=== PATIENT | male | born 1940 | race Caucasian/White ===

== ENCOUNTER 2018-09-30 07:11 | Inpatient (IN) ==
[2018-09-30] MEDS ORDERED: ASPIRIN PR ONE (07:30)
[2018-09-30] MEDS ORDERED: ASPIRIN PO ONE (07:30)
--- NOTE | 2018-09-30 07:37 | EKG Report ---
Test Performed on : 09/30/2018 07:26:17 AM Test Reason : cp Blood Pressure : / mmHG Vent. Rate : 103 BPM Atrial Rate : 103 BPM P-R Int : 158 ms QRS Dur : 118 ms QT Int : 370 ms P-R-T Axes : 036 083 022 degrees QTc Int : 484 ms Sinus tachycardia. Possible Left atrial enlargement Right bundle branch block Septal infarct , age undetermined Abnormal ECG No previous ECGs available Unconfirmed Result
--- NOTE | 2018-09-30 07:50 | PROVIDER DOCUMENTATION ---
HPI-Respiratory General - General Chief Complaint: Chest Pain Stated Complaint: CHEST PAIN Time Seen by Provider: 09/30/18 07:33 Source: patient, family, old records Allergies/Adverse Reactions: Patient Allergies Allergy/AdvReac Type Severity Reaction Status Date / Time No Known Allergies Allergy Verified 09/30/18 09:00 - History of Present Illness-Resp Nature of Presenting Problem: pt cc: recurring and progressive BOUCHER past 2-3 wks. also cc: very transient episodes of CP during this time or longer ([facility] after last office visit w/ similar hx sev'l week ago). pt has no known hx of OHD, but had CVA a few years ago leading to L endart'x and diagnosis of "genetic clotting disorder" (however pt has no clinical hx of events other than the CVA, specifically no known hx DVT/PE). he denies CP at time of exam but had brief, non-rad'n CP this a.m, unassoc w/ diaphoresis. Quality of Pain: reports: none Review of Systems - Adult - REVIEW OF SYSTEMS - ADULT Constitutional: reports: no symptoms reported Eyes: reports: no symptoms reported Ears, Nose, Mouth & Throat: reports: no symptoms reported Cardiovascular: reports: see HPI Respiratory: reports: see HPI Gastrointestinal: reports: no symptoms reported Genitourinary: reports: no symptoms reported Musculoskeletal: reports: no symptoms reported Integumentary: reports: no symptoms reported Neurological: reports: no symptoms reported Psychiatric: reports: no symptoms reported Endocrine: reports: no symptoms reported Hematologic/Lymphatic: reports: no symptoms reported Allergic/Immunologic: reports: no symptoms reported All Other Systems: Reviewed and Negative Past History - Adult - PAST MEDICAL HISTORY-ADULT Review of Records: reports: Old Records Reviewed (no comp EKG, no meaningful records hx other than annual f/u carotid studies) Physical Exam-General - PHYSICAL EXAM-ADULT Initial Vital Signs Reviewed: Yes - CONSTITUTIONAL General Appearance: alert, no apparent distress - EYES Eyes: PERRL/EOMI, pink conjunctivae. negative: sclera injected, scleral icterus - HEAD, EARS, NOSE, MOUTH & THROAT HENMT: normocephalic/atraumatic, moist mucous membranes, normal ENT inspection - NECK Neck: full range of motion, supple - RESPIRATORY Respiratory: no accessory muscle use, crackles, increased rate. negative: rales, rhonchi, stridor, wheezing - CARDIOVASCULAR Cardiovascular: normal peripheral pulses, regular rate, rhythm - GASTROINTESTINAL (ABDOMEN) Abdominal Exam: normal bowel sounds, non tender, soft - LYMPHATIC Lymphatic: no adenopathy - MUSCULOSKELETAL Back Exam: normal inspection, no CVA tenderness Extremity: normal range of motion Peripheral Pulses: radial (R): 2+, radial (L): 2+ - SKIN Integumentary: normal color, normal turgor, warm/dry. negative: ecchymosis, purpura, rash - NEUROLOGIC Neurologic: epic [facility] II-XII nml as tested, grossly normal - PSYCHIATRIC Psych/Mental Status: normal mood/affect, normal thought content - HEART Score HEART Score: History: Slightly Suspicious HEART Score: ECG: Non-Specific Repolarization Disturbance/LBBB/PM HEART Score: Age: > or = 65 Years HEART Score: Risk Factors for Atherosclerotic Disease: > or = 3 Risk Factors or History of Atherosclerotic Disease Progress - PLAN OF CARE/RESULTS Progress/Plan/Lab Results: Vital Signs - 8 hr 09/30/18 08:22 09/30/18 08:30 09/30/18 08:40 Pulse Rate 96 H 95 H 95 H Respiratory Rate 26 H 35 H 30 H Blood Pressure O2 Sat by Pulse Oximetry 91 L 91 L 90 L 09/30/18 08:50 09/30/18 09:00 09/30/18 09:10 Pulse Rate 94 H 93 H 93 H Respiratory Rate 32 H 30 H 30 H Blood Pressure O2 Sat by Pulse Oximetry 91 L 90 L 90 L 09/30/18 09:20 09/30/18 09:21 09/30/18 10:17 Pulse Rate 94 H 90 94 H Respiratory Rate 29 H 33 H Blood Pressure 122/62 138/69 O2 Sat by Pulse Oximetry 91 L 89 L 09/30/18 11:00 09/30/18 11:40 09/30/18 12:00 Pulse Rate 93 H 90 92 H Respiratory Rate 28 H 31 H 32 H Blood Pressure O2 Sat by Pulse Oximetry 88 L 91 L 91 L 09/30/18 12:11 09/30/18 13:00 09/30/18 13:30 Pulse Rate 80 88 Respiratory Rate 32 H 31 H Blood Pressure O2 Sat by Pulse Oximetry 92 L 91 L 91 L 09/30/18 13:50 09/30/18 14:00 09/30/18 14:19 Pulse Rate 85 89 88 Respiratory Rate 24 30 H 30 H Blood Pressure 123/61 O2 Sat by Pulse Oximetry 90 L 91 L 91 L 09/30/18 15:02 Pulse Rate 87 Respiratory Rate 25 H Blood Pressure 134/67 O2 Sat by Pulse Oximetry 90 L Laboratory Results - last 24 hr 09/30/18 09/30/18 09/30/18 08:04 08:04 08:04 WBC 23.55 H RBC 4.20 L Hgb 12.3 L Hct 37.8 L MCV 90.0 MCH 29.3 MCHC 32.5 L RDW Std Deviation 14.0 Plt Count 690 H MPV 8.8 Neut % (Auto) 69.9 Lymph % (Auto) 4.8 L [place] % (Auto) 6.9 Eos % (Auto) 18.2 H Baso % (Auto) 0.2 Neut # (Auto) 16.47 H Lymph # (Auto) 1.12 L [place] # (Auto) 1.63 H Eos # (Auto) 4.28 H Baso # (Auto) 0.05 PT INR PTT (Actin FS) Sodium 130 L Potassium 4.4 Chloride 89 L Carbon Dioxide 32 Anion Gap 9 BUN 18 Creatinine 0.6 L Estimated GFR/1.73 m2 > 60 BUN/Creatinine Ratio 30 Glucose 98 Calculated Osmolality 263 Calcium 8.5 L Total Bilirubin 0.28 AST 14 ALT 35 Alkaline Phosphatase 103 Creatine Kinase 14 L Troponin T Luq-Z-Kvjfyrtqxom Pept 1128 H Total Protein 5.2 L Albumin 2.2 L Globulin 3.0 Albumin/Globulin Ratio 0.7 Plasma Lactate 09/30/18 09/30/18 09/30/18 08:04 08:04 10:30 WBC RBC Hgb Hct MCV MCH MCHC RDW Std Deviation Plt Count MPV Neut % (Auto) Lymph % (Auto) [place] % (Auto) Eos % (Auto) Baso % (Auto) Neut # (Auto) Lymph # (Auto) [place] # (Auto) Eos # (Auto) Baso # (Auto) PT 14.7 INR 1.06 PTT (Actin FS) 64.1 H Sodium Potassium Chloride Carbon Dioxide Anion Gap BUN Creatinine Estimated GFR/1.73 m2 BUN/Creatinine Ratio Glucose Calculated Osmolality Calcium Total Bilirubin AST ALT Alkaline Phosphatase Creatine Kinase Troponin T < 0.010 Pak-B-Nqejhafnxxw Pept Total Protein Albumin Globulin Albumin/Globulin Ratio Plasma Lactate 0.9 09/30/18 09/30/18 09/30/18 13:21 13:50 13:50 WBC RBC Hgb Hct MCV MCH MCHC RDW Std Deviation Plt Count MPV Neut % (Auto) Lymph % (Auto) [place] % (Auto) Eos % (Auto) Baso % (Auto) Neut # (Auto) Lymph # (Auto) [place] # (Auto) Eos # (Auto) Baso # (Auto) PT INR PTT (Actin FS) Sodium Potassium Chloride Carbon Dioxide Anion Gap BUN Creatinine Estimated GFR/1.73 m2 BUN/Creatinine Ratio Glucose Calculated Osmolality Calcium Total Bilirubin AST ALT Alkaline Phosphatase Creatine Kinase 13 L Troponin T < 0.010 Rwd-L-Ruuvwrqjwzy Pept Total Protein Albumin Globulin Albumin/Globulin Ratio Plasma Lactate 0.9 Orders Category Date Time Status Admit - [facility] Routine AdmDCTranf 09/30/18 15:37 Active Cardiac Monitoring DIRECTED Care 09/30/18 07:30 Active Cardiac Monitoring DIRECTED Care 09/30/18 09:28 Active IV Insertion ORDERED Care 09/30/18 09:28 Completed Notify MD of + Sepsis Screen NOW Care 09/30/18 09:28 Active Notify Physician As Ordered Care 09/30/18 09:28 Active Nursing- MD Consult Request ROUTINE Care 09/30/18 15:37 Active Oxygen Therapy- ED Nursing DIRECTED Care 09/30/18 07:30 Active Saline Loc NOW Care 09/30/18 07:30 Active Turn, Cough and Deep Breathe Q2HR Care 09/30/18 15:37 Active Update & Confirm Home Medicati ROUTINE Care 09/30/18 15:39 Active Physician/Provider Consults Routine Cons 09/30/18 15:37 Ordered Physician/Provider Consults Routine Cons 09/30/18 15:37 Ordered Heart Healthy Diet Diet 09/30/18 15:38 Active CHEST-2 VIEWS [RAD] Stat Exams 09/30/18 07:[address] ANGIOGRM PULMONARY ARTERIES [CT] Stat Exams 09/30/18 07:43 Completed ABG [RESP] Routine Lab 09/30/18 15:37 Ordered BLOOD CULTURE [BLDCUL] Stat Lab 09/30/18 10:30 Results BLOOD CULTURE [BLDCUL] Stat Lab 09/30/18 14:07 Ordered CBC WITH ELECTRONIC DIFF [HEME] Stat Lab 09/30/18 08:04 Completed CK PROFILE [SP CHEM] Stat Lab 09/30/18 08:04 Completed CK PROFILE [SP CHEM] Stat Lab 09/30/18 13:50 Completed COMPREHENSIVE METABOLIC PANEL [CHEM] Stat Lab 09/30/18 08:04 Completed LACTATE, PLASMA [CHEM] Lab 09/30/18 10:30 Completed LACTATE, PLASMA [CHEM] Lab 09/30/18 13:21 Completed LACTATE, PLASMA [CHEM] Lab 09/30/18 16:14 Ordered PRO B-NATRIURETIC PEPTIDE Stat Lab 09/30/18 08:04 Completed PROTIME WITH INR [COAG] Stat Lab 09/30/18 08:04 Completed PTT [COAG] Stat Lab 09/30/18 08:04 Completed SPUTUM CULTURE WITH GRAM STAIN [RM] Routine Lab 09/30/18 15:37 Uncollected TROPONIN T Stat Lab 09/30/18 08:04 Completed TROPONIN T Stat Lab 09/30/18 13:50 Completed Acetaminophen [Tylenol] Med 09/30/18 15:37 Active 650 mg PO Q4H PRN PRN Acetylcysteine 20% [Mucomyst 20%] Med 09/30/18 19:30 Active 3 ml INH RTBID Albuterol 2.5MG/Ipratrop 0.5MG [Duoneb (A & A)] Med 09/30/18 19:30 Active 3 ml INH RTQ4H Aspirin Med 09/30/18 07:30 Discontinued 300 mg LA NOW ONE Aspirin Med 09/30/18 11:36 Discontinued 325 mg .ROUTE .STK-MED ONE Aspirin Med 09/30/18 07:30 Discontinued 325 mg PO NOW ONE Budesonide [Pulmicort] Med 09/30/18 19:30 Active 0.5 mg INH RTBID CefTRIAXONE [Rocephin] 1 gm Med 10/01/18 09:00 Active 0.9% Sodium Chloride Inj [Ns] 50 ml IV Q24H CefTRIAXONE [Rocephin] 2 gm Med 09/30/18 13:54 Discontinued 0.9% Sodium Chloride Inj [Ns] 50 ml IV NOW Doxycycline Med 09/30/18 13:54 Discontinued 100 mg PO NOW ONE Enoxaparin [Lovenox] Med 10/01/18 09:00 Active 30 mg SUBQ Q24H Furosemide [Lasix] Med 09/30/18 15:42 Discontinued 20 mg IV NOW ONE Methylprednisolone Sod Succ [Solu-Medrol] Med 09/30/18 15:39 Discontinued 125 mg IV NOW ONE Methylprednisolone Sod Succ [Solu-Medrol] Med 09/30/18 23:30 Active 40 mg IV Q8H Aerosol Treatments Routine Oth 09/30/18 15:37 Active CP/SOB/Palp >45 yrs of Age Stat Oth 09/30/18 07:30 Ordered Oxygen Device Routine Oth 09/30/18 15:37 Active Oxygen Device Stat Oth 09/30/18 09:28 Active Pulse Oximetry Routine Oth 09/30/18 15:37 Active EKG [EKG] Stat Ther 09/30/18 07:30 Draft EKG [EKG] Stat Ther 09/30/18 13:28 Draft Echo Spec/Color Doppler Routine Ther 09/30/18 15:41 Ordered Transfer/Admit Order [TRANSFER] Routine Transfer 09/30/18 15:32 Ordered Result Diagrams: 09/30/18 08:04 09/30/18 08:04 - REASSESSMENT Reassessment #1 Time Reassessed: 14:50 Status: unchanged (exam unchanged, and no PE per CTA, however radiologist feels there is new pneumonia: will give IV abx coverage and obtain cultures, will consult for admit.) - CONSULTS/PCP/HOSPITALIST Notification #1 *Consult/PCP/Hospitalist*: hospitalist Consult Disposition: Admit Departure - Departure Date of Disposition Decision: 09/30/18 Time of Disposition Decision: 15:15 DIAGNOSIS: Pneumonia Disposition: ADMITTED INPATIENT 09 Certified Medical Emergency: Emergent Condition: Stable - Critical Care Note This patient required my direct & personal management of CC.: No Attestation - Physician/ PATRICK Attestation The physician spent face to face time with patient:: Yes Advanced Practice Provider documentation review:: Supervising physician onsite and consulted in the evaluation and care of this patient. The physician did have a face to face encounter with the patient.
--- NOTE | 2018-09-30 08:37 | Diag Imaging Result Doc PS360 ---
CHEST-2 VIEWS - 09/30/2018 INDICATION: cp COMPARISON: 09/28/2018, 09/22/2018 FINDINGS: There is persistent severe consolidation of the left lower lobe and lingula extending to the left upper lobe. There is new diffuse bilateral interstitial infiltrate compatible with pulmonary edema. There are probably trace pleural effusions. Heart size is top normal. IMPRESSION: Interstitial pulmonary edema. Superimposed on significant infiltrates in the left lung concerning for pneumonia. Electronically signed by Beck Blake 09/30/2018 8:35 AM
[2018-09-30 08:41] LABS: INR 1.06; PROTIME 14.7 Seconds (11.0-16.0)
[2018-09-30 08:43] LABS: PTT 64.1 Seconds (22.3-41.8)
[2018-09-30 08:50] LABS: BASO# 0.05 X1000 (0.0-0.2); BASO% 0.2 % (0.0-0.8); EOS# 4.28 X1000 (0.0-0.7); EOS% 18.2 % (0.0-10.0); HEMATOCRIT 37.8 % (42.0-52.0); HEMOGLOBIN 12.3 g/dL (14.0-18.0); LYMPH# 1.12 X1000 (1.2-3.4); LYMPH% 4.8 % (20.5-51.1); MCH 29.3 PG (27-31); MCHC 32.5 g/dL (33-37); MONO# 1.63 X1000 (0.11-0.59); MONO% 6.9 % (1.7-9.3); MPV 8.8 FL (7.4-10.4); NEUT# 16.47 X1000 (1.4-6.5); NEUT% 69.9 % (42.2-75.2); PLT 690 X1000 (130-400); WBC 23.55 X1000 (4.8-10.8)
[2018-09-30 09:06] LABS: ESTIMATED GFR > 60
[2018-09-30 09:14] LABS: AGAP 9; ALB/GLOB RATIO 0.7; ALBUMIN 2.2 g/dL (3.5-5.0); ALKALINE PHOSPHATASE 103 U/L (32-122); BUN 18 mg/dL (8-22); CALCIUM 8.5 mg/dL (8.8-10.2); CHLORIDE 89 mmol/L (98-107); CK PROFILE 14 U/L (24-204); COSMO 263; CREATININE 0.6 mg/dL (0.7-1.2); GLUCOSE 98 mg/dL (70-104); GOT 14 U/L (10-34); GPT 35 U/L (10-44); POTASSIUM 4.4 mmol/L (3.5-5.1); SODIUM 130 mmol/L (136-145); TCO2 32 mmol/L (25-35); TOTAL BILIRUBIN 0.28 mg/dL (0.20-1.00); TOTAL PROTEIN 5.2 g/dL (6.3-8.3)
--- NOTE | 2018-09-30 11:06 | Diag Imaging Result Doc PS360 ---
EXAM: CT ANGIOGRM PULMONARY ARTERIES 09/30/2018 HISTORY: lung CA per PET scan; SOB, hx "clotting disorder" TECHNIQUE: This exam was performed using automated exposure control, adjustment of mA or kV according to patient size, and/or use of iterative reconstruction technique. COMMENT: 3-D MIPS were performed. There are no filling defects in the pulmonary arteries. There are bilateral pleural effusions. This may be loculated on the left. There is right paratracheal adenopathy. Compared to the previous PET/CT of 09/28/2018 this has not changed significantly. There is also aorticopulmonary window adenopathy precarinal and subcarinal adenopathy. There is hazy and denser alveolar opacity in both lower lobes particularly the left lower lobe. There is peripheral interstitial and alveolar opacity present in the middle lobe and both upper lobes particularly posteriorly. Compared to the previous examination the pulmonary opacities in the right lower lobe appear worse. The pleural fluid collections were also present previously. The regional skeleton is stable in appearance. IMPRESSION: Bilateral pleural effusions and extensive pulmonary parenchymal opacification. This may represent pneumonia or pulmonary edema, or a combination of the above. Mediastinal adenopathy. The rapidity of change between the examination at [facility] on 09/22/2018 and the current examination which makes neoplastic involvement, particularly on the right side less likely. Electronically signed by Rudolph Thomson 09/30/2018 11:04 AM
[2018-09-30] MEDS ORDERED: ASPIRIN ONE (11:36)
[2018-09-30] MEDS ORDERED: DOXYCYCLINE PO ONE (13:54)
[2018-09-30] MEDS ORDERED: ROCEPHIN 2 GM in NS 50 ML IV ONE (13:54)
--- NOTE | 2018-09-30 14:07 | EKG Report ---
Test Performed on : 09/30/2018 1:42:49 PM Test Reason : CP Blood Pressure : / mmHG Vent. Rate : 087 BPM Atrial Rate : 087 BPM P-R Int : 160 ms QRS Dur : 118 ms QT Int : 404 ms P-R-T Axes : 012 062 017 degrees QTc Int : 486 ms Sinus rhythm. with occasional premature ventricular complexes. Right bundle branch block Septal infarct (cited on or before 30-SEP-2018) Abnormal ECG When compared with ECG of 30-SEP-2018 07:26, (Unconfirmed) premature ventricular complexes. are now present Serial changes of Septal infarct present Unconfirmed Result
[2018-09-30] MEDS ORDERED: TYLENOL PO PRN (15:37)
[2018-09-30] MEDS ORDERED: SOLU-MEDROL IV ONE (15:39)
[2018-09-30] MEDS ORDERED: LASIX IV ONE (15:42)
[2018-09-30 16:19] LABS: ALLEN TEST YES; BE 8.1 mmoll (-3.0-3.0); BLOOD TYPE ARTERIAL; METHB 1.1 % (0.0-1.5); O2(CT) 16.2 mL/dL (15.0-23.0); PCO2(98.6) 48 mmHg (35-45); PO2(98.6) 55 mmHg (60-100); SAMPLE BLOOD; pH(98.6) 7.45 (7.35-7.45)
[2018-09-30 16:25] LABS: MODALITY CANNULA; O2HB 88.7 % (95.0-99.0)
[2018-09-30 16:48] LABS: URINE SOURCE CLEAN CATCH
[2018-09-30 16:55] LABS: BILIRUBIN URINE NEGATIVE (NEGATIVE); BLOOD URINE NEGATIVE (NEGATIVE); COLOR YELLOW; GLUCOSE URINE NEGATIVE (NEGATIVE); KETONE URINE NEGATIVE (NEGATIVE); LEUKOCYTES URINE NEGATIVE (NEGATIVE); NITRITE URINE NEGATIVE (NEGATIVE); PH URINE 7.5; PROTEIN URINE TRACE mg/dL (NEGATIVE); TURBIDITY URINE CLEAR (CLEAR); UROBILINOGEN URINE NORMAL (NORMAL)
[2018-09-30 16:56] LABS: UR EPITHELIAL CELLS <10 /HPF (<10); URINE BACTERIA NEGATIVE /HPF; URINE RBC <10 /HPF (<10); URINE WBC <10 /HPF (<10)
--- NOTE | 2018-09-30 17:08 | ED EKG INTERP ---
This chart was entered by Juany Stephens Scribe, acting as scribe for Diego Marcano MD. EKG Interpretation - EKG Time of EKG reading by physician:: 07:32 EKG Read and Signed by:: Diego Marcano EKG Interpretation (*Must complete 3 of following elements*): Abnormal (possible left atrial enlargement; septal infarct, age undetermined) Rate: 103 Rhythm: sinus tachycardia QRS: RBB ST Wave: normal Attestation - Physician/ PATRICK Attestation Patient care was provided by Advanced Practice Provider:: No The physician spent face to face time with patient:: Yes Advanced Practice Provider documentation review:: Supervising physician onsite and consulted in the evaluation and care of this patient. The physician did have a face to face encounter with the patient. This chart was documented by the indicated scribe, (Juany Stephens Scribe) and accurately reflects the services I performed and decisions made by me, Diego Marcano MD, as attested by the provider's signature.
--- NOTE | 2018-09-30 17:08 | ED EKG INTERP ---
This chart was entered by Juany Stephens Scribe, acting as scribe for Diego Marcano MD. EKG Interpretation - EKG Time of EKG reading by physician:: 13:44 EKG Read and Signed by:: Diego Marcano EKG Interpretation (*Must complete 3 of following elements*): Abnormal (septal infarct, age undetermined) Rate: 87 Rhythm: sinus rhythm QRS: RBB, PVC's (occasional) ST Wave: normal Attestation - Physician/ PATRICK Attestation Patient care was provided by Advanced Practice Provider:: No The physician spent face to face time with patient:: Yes Advanced Practice Provider documentation review:: Supervising physician onsite and consulted in the evaluation and care of this patient. The physician did have a face to face encounter with the patient. This chart was documented by the indicated scribe, (Juany Stephens Scribe) and accurately reflects the services I performed and decisions made by me, Diego Marcano MD, as attested by the provider's signature.
--- NOTE | 2018-09-30 17:50 | HISTORY AND PHYSICAL ---
PRIMARY CARE PROVIDER: Dr. Gadiel Osorio. PRIMARY ONCOLOGIST: Dr. Harry Yanez. HISTORY OF PRESENT ILLNESS: Mr. Fadi Cutler is a 77-year-old male with a medical history of CVA back in 2007 requiring a left carotid endarterectomy, hypertension, hyperlipidemia, prostate cancer in the past with radiation seeds, depression, and arthritis. He states over the last 2-3 weeks he has been short of breath, coughing up green and yellow phlegm. Denies having any fevers but had a spell this morning where he was extremely short of breath. He felt like his blood pressure was low and his heart rate was up. He was having chest pain with it, so he presented to the emergency department with these complaints. Currently he is breathing much more comfortably. He is requiring oxygen. He has an elevated white blood cell count. His chest x-ray shows pneumonia bilaterally. He has been started on antibiotics. He is not septic. His white count is quite elevated. The respiratory rate is elevated, but the heart rate is normal. Lactate is normal. We are going to get an ABG. He states that last Wednesday he had a PET scan and then saw Dr. 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 Currently he is stable, and we will treat him. He denies having COPD. PAST MEDICAL HISTORY: 1. CVA with memory loss. 2. Carotid artery stenosis with left CEA. 3. Hypertension. 4. Hyperlipidemia. 5. Restless legs syndrome. 6. BPH. 7. History of prostate cancer with radiation seeds. 8. Depression. 9. Arthritis. PAST SURGICAL HISTORY: 1. Left carotid endarterectomy. 2. Appendectomy. 3. Prostate seed implant. SOCIAL HISTORY: States he has not been smoking at all over the last 2-3 weeks, but he has been a 1-ptvi-qdh-day smoker for many years. States he started smoking at the age of 15. He denies having any alcohol in the last 2 years, but he used to drink a 6-pack of beer daily. He is currently living with his son. He denies any illicit drug use. FAMILY HISTORY: Mother had dementia. Father is still alive at the age of 102 and has h patient. Sister had lung cancer. ALLERGIES: No known drug allergies. HOME MEDICATIONS: Have not been verified. There is an order for it. REVIEW OF SYSTEMS: A 14-point review of systems is completed, and all are negative except for those mentioned above in the HPI. PHYSICAL EXAMINATION: VITAL SIGNS: Temperature 97.8, heart rate 89, respiratory rate 30, blood pressure 91% on 4 L nasal cannula. He is 5 feet 11 inches tall, 200 pounds. BMI is 27.9. GENERAL: Mr. Fadi Cutler is a 77-year-old male. He is in no acute distress. He is able to answer questions appropriately HEENT: Atraumatic, normocephalic. Pupils equal, round, and reactive to light. Extraocular movements intact. Mucous membranes are moist. NECK: Trachea midline. CARDIOVASCULAR: S1 and S2. Regular rate and rhythm. No rubs, gallops or murmurs. There is trace lower extremity edema. He has +2 dorsalis and radial pulses. Negative for JVD or carotid bruits. PULMONARY: Mild expiratory wheezes. He does have prolonged expiration that is decreased in the bases with fine rhonchi posteriorly. He is tolerating 4 L nasal cannula. GI: Soft, nontender, nondistended. Positive bowel sounds x4. EXTREMITIES: Moves all extremities equally with decreased range of motion. NEUROLOGIC: A O x3. Follows commands. Sensory is intact. SKIN: Warm, dry and intact. LABORATORY DATA: White blood cells 23,000, hemoglobin 12, hematocrit 37, platelet count 690. INR 1.06, PTT 64. Sodium 130, potassium 4.4, BUN 18, creatinine 0.6, glucose 98. Calcium 8.5, bilirubin 0.28. AST 14, ALT 35. CK 13. Troponin less than 0.01 (this was on 2 sets). ProBNP is 1128. Albumin 2.2. Two serum lactates are showing 0.9. The repeat was 0.9. IMAGING: Chest x-ray: Interstitial pulmonary edema superimposed on significant infiltrates in the left lung, concerning for pneumonia. Pulmonary arteriogram: Bilateral pleural effusions and extensive pulmonary parenchymal opacification, may represent pneumonia, pulmonary edema or a combination of both. Mediastinal adenopathy which has the appearance of infection instead of neoplastic involvement. EKG: Sinus tachycardia, rate of 103, QTc 484. Repeat EKG: Normal sinus rhythm, rate of 87, QTc of 486. ASSESSMENT/PLAN: 1. Acute hypoxemic respiratory failure. Could be secondary to lung cancer or mesothelioma. Could be secondary to possible chronic obstructive pulmonary disease. He is on oxygen. He is able to keep the O2 saturations over 90%. Will consult Pulmonary. Will add steroids. 2. 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 Will consult Dr. Yanez and Dr. King. 3. Pneumonia. Will get a sputum culture and start him on Rocephin. He is not septic at the moment. On nebulizers, turn, cough, deep breathing, pulmonary toilet. 4. Protein calorie malnutrition. He started on a heart-healthy diet, but will do a nutritional consult. 5. History of stroke with memory loss. He does seem to have a little bit of problems with his memory with questions, but it is not severe. 6. Hypertension, stable. Trying to get medications reconciled. 7. Hyperlipidemia. 8. Benign prostatic hypertrophy. Will hopefully resume his medications that he is on. 9. Restless legs syndrome. 10.Depression. 11.Deep venous thrombosis prophylaxis with Lovenox. 12.Tobacco abuse. Cessation discussion. He states he has quit, and he has been quit for 2 to 3 weeks, but had been smoking since age 15. Dictated by ELY Barrientos for Isidoro Martinez MD cc: ELY Barrientos MD Patient seen and examined by me. I agree with the assessment and plan of the OPERATIONS EXPERT. Dr. Michelle TELLO
[2018-09-30] MEDS: MUCOMYST 20% INH SCH (20:21)
[2018-09-30] MEDS: DUONEB (A & A) INH SCH ×2 (20:21→23:45)
[2018-09-30] MEDS: PULMICORT INH SCH (20:21)
[2018-10-01] MEDS: SOLU-MEDROL IV SCH ×3 (00:52→18:11)
[2018-10-01] MEDS: DUONEB (A & A) INH SCH ×6 (03:45→23:24)
[2018-10-01 05:59] LABS: ALLEN TEST YES; BE 8.5 mmoll (-3.0-3.0); BLOOD TYPE ARTERIAL; HCO3-(ACT) 31.4 mmoll (20.0-26.0); O2(CT) 14.1 mL/dL (15.0-23.0); O2HB 90.1 % (95.0-99.0); PO2(98.6) 59 mmHg (60-100); SAMPLE BLOOD; SAO2 92.4 % (95.0-100.0); THB 11.1 g/dL (11.5-17.4); pH(98.6) 7.42 (7.35-7.45)
[2018-10-01 06:01] LABS: MODALITY PRB; PCO2(98.6) 53 mmHg (35-45)
[2018-10-01 07:54] LABS: BASO# 0.03 X1000 (0.0-0.2); BASO% 0.2 % (0.0-0.8); EOS# 0.22 X1000 (0.0-0.7); EOS% 1.2 % (0.0-10.0); HEMOGLOBIN 12.1 g/dL (14.0-18.0); IMM GRAN# 0.36 X1000 (0.0-0.04); LYMPH# 0.86 X1000 (1.2-3.4); LYMPH% 4.8 % (20.5-51.1); MCH 29.3 PG (27-31); MCHC 32.7 g/dL (33-37); MCV 89.6 FL (81-99); MONO# 0.66 X1000 (0.11-0.59); MONO% 3.7 % (1.7-9.3); MPV 8.9 FL (7.4-10.4); NEUT# 15.92 X1000 (1.4-6.5); NEUT% 88.1 % (42.2-75.2); PLT 699 X1000 (130-400); RBC 4.13 XMIL (4.7-6.1); RDW 13.8 % (11.5-14.5); WBC 18.05 X1000 (4.8-10.8)
[2018-10-01] MEDS: PULMICORT INH SCH ×2 (08:02→20:21)
[2018-10-01] MEDS: MUCOMYST 20% INH SCH ×2 (08:02→20:21)
[2018-10-01 08:10] LABS: AGAP 11; ALB/GLOB RATIO 0.6; ALBUMIN 2.2 g/dL (3.5-5.0); ALKALINE PHOSPHATASE 96 U/L (32-122); BUN 24 mg/dL (8-22); CALCIUM 8.7 mg/dL (8.8-10.2); CHLORIDE 90 mmol/L (98-107); COSMO 271; CREATININE 0.6 mg/dL (0.7-1.2); ESTIMATED GFR > 60; GLUCOSE 146 mg/dL (70-104); GOT 16 U/L (10-34); GPT 32 U/L (10-44); POTASSIUM 4.1 mmol/L (3.5-5.1); SODIUM 132 mmol/L (136-145); TCO2 31 mmol/L (25-35); TOTAL BILIRUBIN 0.18 mg/dL (0.20-1.00)
[2018-10-01 08:47] LABS: BANDS 6 % (0-1); LYMPHS 4 % (21-51); MONO 2 % (1-9); SEGS 86 % (42-75)
[2018-10-01] MEDS ORDERED: LEVAQUIN 500 MG/D5W 500 MG/100 ML IVPB IV SCH (10:30)
[2018-10-01] MEDS ORDERED: LASIX IV ONE ×2 (11:36→18:00)
[2018-10-01] MEDS: ROCEPHIN 1 GM in NS 50 ML IV SCH (11:45)
[2018-10-01] MEDS: LOVENOX SUBQ SCH (11:45)
[2018-10-01] MEDS ORDERED: NS 1,000 ML ONE (12:13)
--- NOTE | 2018-10-01 13:43 | Diag Imaging Result Doc PS360 ---
EXAM: CHEST-2 VIEWS HISTORY: Pneumonia TECHNIQUE: Chest two views COMPARISON: 09/30/2018 FINDINGS: The lungs are hyperexpanded. There are dense infiltrates throughout the left lung with small pleural effusions. Heart is borderline mildly prominent and there is mild pulmonary edema. IMPRESSION: No interval improvement. Electronically signed by Van Escobedo 10/01/2018 1:41 PM
--- NOTE | 2018-10-01 14:59 | ECHO REPORT ---
ORDER DATE: 09/30/2018 INTERPRETING PHYSICIAN: Dr. Zheng REQUESTING PHYSICIAN: CLINICAL INDICATIONS: This is a 77-year-old male with shortness of breath, chest pain. M-mode measurements cannot be properly measured in this case. The parasternal widows are very limited. In general, the patient's acoustic windows were very limited. Optison was added to optimize visualization of endocardium. M-MODE MEASUREMENTS: Right ventricle: cm. Left ventricle end diastole: cm. Left ventricle end systole: cm. Posterior wall: cm. Interventricular septum: cm. Left atrium: cm. Aortic root: cm. SUMMARY OF 2-DIMENSIONAL IMAGIN. Left ventricular systolic function appears to be hyperdynamic. Ejection fraction was 70% to 75%. No wall motion abnormality is noted. 2. Right ventricle appears to be normal. 3. A prominent epicardial fat pad is noted. 4. Aortic valve appears to be grossly normal. Color flow mapping is unremarkable. 5. Mitral valve appears to be grossly normal. Color flow mapping is unremarkable. 6. Pulse wave Doppler of mitral inflow shows reversal of the E and the A ratio. The ratio is 0.6. 7. Tissue Doppler of septal and lateral mitral annulus averages 5 cm. 8. There is impaired left ventricular relaxation. 9. Tricuspid valve looks unremarkable. 10.Pulmonary pressure is estimated at 22 to 27 mmHg. 11.Pulmonic valve is grossly normal. 12.There is no pericardial effusion, masses or thrombus. Clinical correlation is recommended. cc: MD Mona Rdz CRNP
[2018-10-01] MEDS: LEVAQUIN 500 MG/D5W 500 MG/100 ML IVPB IV SCH (18:18)
[2018-10-01] MEDS ORDERED: LASIX ONE (18:23)
--- NOTE | 2018-10-01 20:27 | PROGRESS NOTE ---
DATE: 10/01/2018 INTERVAL HISTORY: Mr. Cutler was admitted for acute hypoxic respiratory failure, bilateral pneumonia. He did not have any acute or other overnight events. He continues to remain hypoxic. SUBJECTIVE: He is feeling slightly better. He is denying any chest pain. He still feels short of breath. He is an active smoker, who quit 2 weeks ago. He has not been able to bring up sputum. We discussed about lung exam findings, pulmonary edema, pneumonia and possible lung mass. I answered all of his questions. The patient's family is at bedside. OBJECTIVE: Temperature 98.7 degrees, pulse 78, respiratory rate 19, blood pressure 125/57, saturating 92% to 93% on 100% nonrebreather mask. General: Does not appear in any acute distress. Oral cavity is moist. He has significantly decreased air entry with inspiratory crackles on left hemithorax, especially from mid to low lung zones. He has good air entry in right hemithorax except infrascapular region, where he has inspiratory crackles; however, better than left. S1, S2 normal, tachycardic. No murmur, rub or gallop. His abdomen is soft, nontender. He does have bilateral lower extremity edema. LABORATORY DATA: Microbiology: Blood cultures are in lab. Lab suggestive of improving leukocytosis, normocytic anemia, thrombocytosis. He does have compensated hypercarbia and hypoxia, hyponatremia, hypochloremia and normal kidney function. ASSESSMENT AND PLAN: 1. Acute hypoxic respiratory failure secondary to bilateral lung infiltrate in the setting of suspected pneumonia, with a component of pulmonary edema. Continue intravenous levofloxacin. He was also on intravenous ceftriaxone. Continue oxygenation to maintain saturation more than 90% to 92%. I will give him intravenous Lasix, considering exam findings as well as elevated proBNP, and we will get echocardiogram. I will also follow up with blood culture, urine antigens and sputum culture results. Pulmonology on board. There are concerns about lung masses. 2. Active tobacco abuse. The patient quit about 2 weeks ago. He does not use any oxygen or nebulizations at home. Considering he had mild wheezing, I will continue current dose of intravenous steroids. 3. Others: I will resume aspirin and rosuvastatin for secondary cerebrovascular accident prophylaxis. I will continue home tamsulosin and finasteride for benign prostatic hypertrophy; I am holding antihypertensive medication including lisinopril and hydrochlorothiazide, considering soft blood pressure. Plan of care was discussed with the patient and his, I assume granddaughter, at bedside. All of their questions have been answered. cc: Joseph Mccabe MD
[2018-10-01] MEDS: CRESTOR PO SCH (21:45)
[2018-10-01] MEDS: REQUIP PO SCH (21:45)
[2018-10-02] MEDS: SOLU-MEDROL IV SCH ×3 (00:09→17:00)
[2018-10-02] MEDS: DUONEB (A & A) INH SCH ×6 (03:35→22:15)
--- NOTE | 2018-10-02 05:31 | CONSULTATION ---
DATE OF CONSULTATION: 10/01/2018 REQUESTING PROVIDER: ELY Barrientos. REASON FOR CONSULTATION: Mesothelioma versus lung cancer. HISTORY OF PRESENT ILLNESS: This is a 77-year-old male with medical history of cerebrovascular accident, carotid arterial stenosis, hypertension, hyperlipidemia, benign prostatic hyperplasia, prostate cancer, restless legs syndrome, depression, and arthritis. He presented to the ER with worsening dyspnea on exertion over 3 weeks yesterday. Initial workup in the ER revealed acute hypercapnic hypoxemic respiratory failure and pneumonia. He has been admitted to the medical floor for further evaluation and management. The patient currently is lying in bed with no acute distress noted. He is wearing a non-rebreather. One of his granddaughters is at the bedside. The patient, apparently, had a PET scan last Wednesday, which revealed mesothelioma versus lung cancer, and he has been seeing Dr. Yanez. He reports severe shortness of breath and states he even has trouble to walk to the bathroom at home. He also has a productive cough with green and yellow phlegm. He reports intermittent chest pain and heart palpitation, but he has no fever, wheezing, hemoptysis, nausea, vomiting, constipation, or diarrhea. PAST MEDICAL AND SURGICAL HISTORY: 1. Cerebrovascular accident in 2007 with memory loss. 2. Carotid arterial stenosis, status post left carotid endarterectomy. 3. Hypertension. 4. Hyperlipidemia. 5. Benign prostatic hyperplasia. 6. Prostate cancer status post radiation seed implant. 7. Restless legs syndrome. 8. Depression. 9. Arthritis. 10. Appendectomy. SOCIAL HISTORY: Patient currently lives with his son. He has 3 children and 5 grandchildren. He quit smoking 2 to 3 weeks ago, after his doctor told him to quit. He used to smoke up to 2 packs per day and started smoking at the age of 15. The patient's family smokes too. He used to drink a 6-pack of beers daily and has stopped drinking for over 2 years. He has no illicit drug use. FAMILY HISTORY: Positive for dementia and lung cancer. ALLERGIES: No known drug allergies. REVIEW OF SYSTEMS: A 10-point review of systems was conducted and the pertinent is listed within the HPI, otherwise noncontributory. PHYSICAL EXAMINATION: Vital Signs: Temperature 98.1 degrees, blood pressure 125/57, pulse 88, respiratory rate 16, oxygen saturation 93% on non-rebreather with FiO2 60%. General: Chronically ill-appearing, resting in bed with no acute distress noted. Cyanosis at the tip of his nose noted. HEENT: Atraumatic. Trachea midline. Mucosa pink and slightly dry. Respiratory: Even and unlabored. Symmetrical excursion. Auscultation reveals diminished breathing sounds and early inspiratory crackles bibasilarly with prolonged expiratory phase. Cardiovascular: Regular rate and rhythm. Gastrointestinal: Bowel sounds normoactive in all 4 quadrants. Soft, nontender, nondistended. Extremities: Left lower extremity has trace pitting edema, which per patient, is normal. No cyanosis. No clubbing. Dorsalis pedis 2+ bilaterally. Neurologic: Alert, oriented x3. Speech fluent. Follows commands. LAB DATA: White blood cell 18.05, hemoglobin 12.1, hematocrit 37.0, platelets 699,000. Sodium 132, potassium 4.1, chloride 90, carbon dioxide 31, BUN 24, creatinine 0.6. Glucose 146. ABG, pH 7.42, pCO2 of 53, PO2 of 59, HCO3 31.4, base excess 8.5, and oxyhemoglobin 90.1. IMAGING DATA: CT angiogram, pulmonary arterials on 09/30/2018 revealed bilateral pleural effusion and extensive pulmonary parenchymal opacification. This may represent pneumonia or pulmonary edema, or a combination of the above, mediastinal adenopathy. The rapidity of change between the examination at [facility] on 09/22/2018 and the current examination, which makes neoplastic involvement, particularly on the right side, less likely. ASSESSMENT: This is a 77-year-old male with a medical history of cerebrovascular accident, carotid arterial stenosis, hypertension, hyperlipidemia, benign prostatic hyperplasia, prostate cancer, restless legs syndrome, depression, and arthritis. He has been admitted to the medical floor with acute hypoxemic respiratory failure, mesothelioma versus cancer and pneumonia. 1. Acute hypoxemic respiratory failure. 2. Acute hypercapnic respiratory failure. 3. Pneumonia. 4. Bilateral pleural effusions. 5. 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 6. Tobacco abuse. PLAN: 1. Continue supplemental oxygen as needed. 2. Continue antibiotics, steroid, and bronchodilators. Consider diuretic, if needed. 3. Follow up with chest x-ray, ABG, sputum culture, and blood culture. 4. Consider to repeat CT later at this time. 5. Dr. Yanez is on board. 6. Educate the patient and his granddaughter on the importance of smoking cessation. They both state they are ready to quit it and they have been working on it. 7. Further recommendations pending hospital course. Thank you for the courtesy of this consult. Dictated by ELY Banks for Rima King MD cc: ELY Banks MD [facility]
[2018-10-02 05:34] LABS: ALLEN TEST YES; BE 10.7 mmoll (-3.0-3.0); BLOOD TYPE ARTERIAL; HCO3-(ACT) 33.2 mmoll (20.0-26.0); METHB 0.8 % (0.0-1.5); O2(CT) 15.8 mL/dL (15.0-23.0); O2HB 95.8 % (95.0-99.0); PO2(98.6) 80 mmHg (60-100); SAMPLE BLOOD; SAO2 97.9 % (95.0-100.0); THB 11.7 g/dL (11.5-17.4); pH(98.6) 7.41 (7.35-7.45)
[2018-10-02 05:45] LABS: MODALITY NRB
[2018-10-02 05:46] LABS: PCO2(98.6) 59 mmHg (35-45)
--- NOTE | 2018-10-02 07:23 | Diag Imaging Result Doc PS360 ---
EXAM: CHEST-1 VIEW HISTORY: SOB TECHNIQUE: Portable chest, single view COMPARISON: 10/01/2018 FINDINGS: There are infiltrates throughout the left lung. These are most pronounced in the left lung base where there is also a [id number] pleural effusion. There is pulmonary edema and the heart is mildly enlarged. The overall appearance is similar to the prior exam. IMPRESSION: No interval improvement. Electronically signed by Van Escobedo 10/02/2018 7:21 AM
[2018-10-02] MEDS ORDERED: PULMICORT ONE (07:38)
[2018-10-02] MEDS: PULMICORT INH SCH ×2 (08:02→19:45)
[2018-10-02] MEDS: MUCOMYST 20% INH SCH ×2 (08:02→19:45)
[2018-10-02] MEDS: ROCEPHIN 1 GM in NS 50 ML IV SCH (10:00)
[2018-10-02] MEDS: ASPIRIN PO SCH (10:01)
[2018-10-02] MEDS: LEXAPRO PO SCH (10:01)
[2018-10-02] MEDS: PROSCAR PO SCH (10:01)
[2018-10-02] MEDS: LOVENOX SUBQ SCH (10:01)
[2018-10-02] MEDS: LEVAQUIN 500 MG/D5W 500 MG/100 ML IVPB IV SCH (10:02)
--- NOTE | 2018-10-02 15:48 | HEMO/ONC CONSULTATION ---
DATE: 10/02/2018 REASON FOR CONSULTATION: Left lower lobe lung mass. HISTORY OF PRESENT ILLNESS: Patient is a 77-year-old male who was recently seen by me in the clinic with complaints of 3 to 4 months of fatigue, shortness of breath over the last 1 to 2 months and right-sided chest pain over the last 3 to [address] Osorio and had a chest x-ray that led to a CT scan. CT scan revealed interstitial disease with consolidation in the left lower lobe and possible left lower lobe lung mass. We saw and Augmentin 75 mg b.i.d. on 09/26/2018 and scheduled him for a PET scan. Labs revealed a CEA of less than 0.5 and hyponatremia with sodium level of 124. 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 He presented to the hospital with worsening dyspnea. In the ER, he was noted to have acute hypercapnic hypoxemic respiratory failure and pneumonia. Dr. King has seen him. A CT angiogram was performed which reveals bilateral pleural effusions and extensive pulmonary parenchymal opacification. He has been placed on broad-spectrum antibiotics. PAST MEDICAL HISTORY: Hypertension, hypercholesterolemia, stroke, BPH. PAST SURGICAL HISTORY: Carotid artery surgery, appendectomy, prostate surgery. ALLERGIES: No known drug allergies. SOCIAL HISTORY: Patient currently lives with his son. He smoked 2 packs per day for the last 63 years. He denies significant alcohol intake. FAMILY HISTORY: Positive for pancreatitis, dementia and lung cancer. CURRENT MEDICATIONS: Mini nebs, aspirin, ceftriaxone, Levaquin, Crestor, Requip, Solu-Medrol, Proscar. REVIEW OF SYSTEMS: As dictated above. He has tiredness and fatigue. He reports that his appetite is okay. He denies any pain. He denies fevers or night sweats. All other review of systems are negative. PHYSICAL EXAMINATION: Patient is lying in bed. He is on mask ventilation. He does not appear in any acute distress at this time.Vital Signs: Temperature 97.6 degrees, pulse 77, blood pressure 127/56. HEENT: EOMI. PERRLA. Anicteric. Mucous membranes appear moist. No oral thrush. Neck: Supple without JVD, thyromegaly, or nodules. Cardiac Exam: Regular rate and rhythm. Normal S1, S2. Chest: Reveals fine crackles at bilateral bases. Left greater than right. Occasional wheezing on the right side is heard as well. Abdomen: Soft, nontender, without hepatosplenomegaly or masses. Neurologic: Alert and oriented x3. No focal motor deficits. Lymphatic: Lymphatic exam: No enlarged lymph nodes palpated. Skin: No petechiae or ecchymosis or rash is noted. LABORATORY DATA: White count 18, hemoglobin 12.1, platelets 619,000, ANC 15.9, BUN 24, creatinine 0.6. ProBNP 1128, lactate 0.9. CT pulmonary angiogram: Bilateral pleural effusions. An extensive pulmonary parenchymal opacification. This may represent pneumonia or pulmonary edema or a combination. This has rapidly changed since his last exam from [facility] dated 09/22/2018. ASSESSMENT AND PLAN: 1. Acute hypoxemic respiratory failure. 2. Acute hypercapnic respiratory failure. 3. Pneumonia. 4. Bilateral pleural effusions. 5. 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 Discussed patient with Dr. King. Currently we will aggressively treat him for pneumonia. Continue nebulizers and steroids for possible COPD exacerbation. His infiltrates have rapidly progressed since his prior scans and be infectious in nature. His PET scan revealed pleural thickening and significant uptake in the pleural area with maximum SUV of 15.9, which is particularly concerning for malignancy. Once his infectious disease is managed, will we may have to consider biopsying his pleural mass as evaluation for malignancy. cc: Harry Yanez MD
--- NOTE | 2018-10-02 16:18 | PROGRESS NOTE ---
DATE: 10/02/2018 SUBJECTIVE: Patient resting in bed. OBJECTIVE: Vital Signs: Temperature 97.9 degrees, pulse 85, respirations 18, blood pressure is 132/60, O2 saturation 97%. HEENT: Atraumatic, normocephalic. Cardiovascular: S1, S2. Respiratory system: Has evidence of good air entry bilaterally. Abdomen: Soft, nontender. No masses felt. Extremities: No evidence of edema. Central Nervous System: No evidence of focal deficit. LABORATORY DATA: ABG 7.41/59/80/97.9%. ASSESSMENT AND PLAN: 1. Hypercapnic respiratory failure. Continue patient on supplemental oxygen. Use BiPAP if needed. 2. Pneumonia. Maintain patient on antibiotics. Follow up on blood cultures. 3. 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 Await tissue diagnosis needed to establish a diagnosis. Oncology consulted. 4. Tobacco use history. Aware. 5. History of cerebrovascular accident, continue aspirin. 6. History of benign prostatic hypertrophy. Continue finasteride as well as tamsulosin. 7. Hypertension controlled. 8. Deep vein thrombosis prophylaxis. Lovenox. 9. Gastrointestinal prophylaxis. Proton pump inhibitor. cc: Isidoro Martinez MD MTDD
[2018-10-02] MEDS: REQUIP PO SCH (20:37)
[2018-10-02] MEDS: CRESTOR PO SCH (20:37)
[2018-10-03] MEDS: SOLU-MEDROL IV SCH ×4 (00:27→23:17)
[2018-10-03] MEDS ORDERED: TEARISOL OPH SOLUTION BOTH EYES PRN (02:01)
[2018-10-03] MEDS: DUONEB (A & A) INH SCH ×6 (03:39→22:40)
[2018-10-03 05:30] LABS: ALLEN TEST YES; BE 10.5 mmoll (-3.0-3.0); BLOOD TYPE ARTERIAL; HCO3-(ACT) 33.1 mmoll (20.0-26.0); METHB 0.7 % (0.0-1.5); O2(CT) 15.7 mL/dL (15.0-23.0); O2HB 97.1 % (95.0-99.0); PO2(98.6) 94 mmHg (60-100); SAMPLE BLOOD; SAO2 99.5 % (95.0-100.0); THB 11.4 g/dL (11.5-17.4); pH(98.6) 7.39 (7.35-7.45)
[2018-10-03 05:32] LABS: MODALITY NRB
[2018-10-03 05:36] LABS: PCO2(98.6) 62 mmHg (35-45)
[2018-10-03] MEDS: PROTONIX PO SCH (06:53)
--- NOTE | 2018-10-03 07:08 | Diag Imaging Result Doc PS360 ---
EXAM: CHEST-1 VIEW HISTORY: SOB TECHNIQUE: Portable chest single view COMPARISON: 10/02/2018 FINDINGS: There are infiltrates throughout the left lung. There is also a left pleural effusion with basilar atelectasis. Mild pulmonary edema similar to the prior exam. The heart is mildly enlarged. IMPRESSION: No significant interval improvement. Electronically signed by Van Escobedo 10/03/2018 7:05 AM
[2018-10-03] MEDS: MUCOMYST 20% INH SCH ×2 (07:45→20:04)
[2018-10-03] MEDS: PULMICORT INH SCH ×2 (07:46→20:04)
[2018-10-03] MEDS: LEVAQUIN 500 MG/D5W 500 MG/100 ML IVPB IV SCH ×2 (10:04→16:18)
[2018-10-03] MEDS: LOVENOX SUBQ SCH (10:05)
[2018-10-03] MEDS: LEXAPRO PO SCH (10:05)
[2018-10-03] MEDS: ASPIRIN PO SCH (10:05)
[2018-10-03] MEDS: PROSCAR PO SCH (10:05)
--- NOTE | 2018-10-03 10:19 | PROVIDER PROGRESS NOTE ---
Progress Note Additional Pulmonary note: Recent PET films were reviewed. However I am waiting on the official report. Also will repeat CT imaging in a day or two. After reviewing information above, will decide on tissue diagnosis and approach, if any.
--- NOTE | 2018-10-03 16:05 | PROGRESS NOTE ---
DATE: 10/03/2018 SUBJECTIVE: Patient is resting comfortably. OBJECTIVE: Vital Signs: As follows: Temperature 98.4, pulse of 97, respiratory rate is 20, blood pressure is 131/64, oxygen is 95%. HEENT: Patient is atraumatic, normocephalic. Cardiovascular: S1, S2. Respiratory: Has evidence of good air entry bilaterally. Abdomen: Soft, nontender. No masses felt. Extremities: No evidence of edema. Central Nervous System: No obvious focal deficits noted. LABORATORY DATA: AB.39/62/94/99.5%. X-ray of the chest shows infiltrate throughout the left lung. There is also left pleural effusion with basilar atelectasis. There is mild pulmonary edema similar to prior exam. ASSESSMENT AND PLAN: 1. Hypercapnic respiratory failure. Maintain patient on supplemental oxygen. Use BiPAP as needed. 2. Pneumonia. Continue antibiotics. Follow up on cultures. 3. 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 Await tissue diagnosis needed to establish a diagnosis. Oncology is following. 4. History of cerebrovascular accident. Continue aspirin. 5. History of benign prostatic hypertrophy. Continue tamsulosin as well as finasteride. 6. Hypertension, controlled. 7. DVT prophylaxis. Lovenox. 8. GI prophylaxis. PPI. cc: Isidoro Martinez MD MTDD
[2018-10-03] MEDS: ROCEPHIN 1 GM in NS 50 ML IV SCH (16:18)
[2018-10-03] MEDS: CRESTOR PO SCH (21:18)
[2018-10-03] MEDS: REQUIP PO SCH (21:18)
[2018-10-04] MEDS: DUONEB (A & A) INH SCH ×6 (02:00→22:25)
[2018-10-04 05:29] LABS: ALLEN TEST YES; BE 7.8 mmoll (-3.0-3.0); BLOOD TYPE ARTERIAL; HCO3-(ACT) 30.9 mmoll (20.0-26.0); METHB 0.5 % (0.0-1.5); O2(CT) 16.5 mL/dL (15.0-23.0); O2HB 94.4 % (95.0-99.0); PO2(98.6) 67 mmHg (60-100); SAMPLE BLOOD; SAO2 96.5 % (95.0-100.0); THB 12.4 g/dL (11.5-17.4); pH(98.6) 7.42 (7.35-7.45)
[2018-10-04 05:31] LABS: MODALITY VENTIMASK; PCO2(98.6) 52 mmHg (35-45)
[2018-10-04] MEDS: PROTONIX PO SCH (06:11)
--- NOTE | 2018-10-04 07:04 | Diag Imaging Result Doc PS360 ---
EXAM: CHEST-1 VIEW 10/04/2018 HISTORY: SOB TECHNIQUE: AP portable at 0631 COMMENT: There is volume loss and opacification in the left lower lobe and ill-defined opacity elsewhere particularly in the perihilar portions of both upper lobes. Compared to 10/03/2018 the opacification of the left lower lobe and lingula have worsened. IMPRESSION: Atelectasis versus pneumonia left lower lobe plus minus pulmonary edema. Electronically signed by Rudolph Thomson 10/04/2018 7:01 AM
[2018-10-04] MEDS: PULMICORT INH SCH ×2 (07:54→19:15)
[2018-10-04] MEDS: MUCOMYST 20% INH SCH ×2 (07:54→19:15)
[2018-10-04 08:23] LABS: BASO# 0.02 X1000 (0.0-0.2); BASO% 0.1 % (0.0-0.8); EOS# 0.18 X1000 (0.0-0.7); EOS% 1.1 % (0.0-10.0); HEMATOCRIT 36.6 % (42.0-52.0); HEMOGLOBIN 11.7 g/dL (14.0-18.0); IMM GRAN# 0.22 X1000 (0.0-0.04); IMM GRAN% 1.4 % (0.0-0.5); LYMPH# 1.26 X1000 (1.2-3.4); LYMPH% 7.8 % (20.5-51.1); MCH 29.2 PG (27-31); MCV 91.3 FL (81-99); MONO# 1.91 X1000 (0.11-0.59); MONO% 11.8 % (1.7-9.3); MPV 8.8 FL (7.4-10.4); NEUT# 12.64 X1000 (1.4-6.5); NEUT% 77.8 % (42.2-75.2); PLT 765 X1000 (130-400); RBC 4.01 XMIL (4.7-6.1); RDW 13.8 % (11.5-14.5); WBC 16.23 X1000 (4.8-10.8)
[2018-10-04 08:36] LABS: AGAP 5; ALB/GLOB RATIO 0.9; ALBUMIN 2.6 g/dL (3.5-5.0); ALKALINE PHOSPHATASE 70 U/L (32-122); BUN 26 mg/dL (8-22); CALCIUM 8.1 mg/dL (8.8-10.2); CHLORIDE 93 mmol/L (98-107); COSMO 267; CREATININE 0.5 mg/dL (0.7-1.2); ESTIMATED GFR > 60; GLUCOSE 85 mg/dL (70-104); GOT 19 U/L (10-34); GPT 69 U/L (10-44); POTASSIUM 4.7 mmol/L (3.5-5.1); SODIUM 131 mmol/L (136-145); TCO2 33 mmol/L (25-35); TOTAL BILIRUBIN 0.25 mg/dL (0.20-1.00); TOTAL PROTEIN 5.4 g/dL (6.3-8.3)
[2018-10-04 08:39] LABS: BANDS 4 % (0-1); EOS 4 % (1-10); LYMPHS 8 % (21-51); MONO 4 % (1-9); SEGS 72 % (42-75)
[2018-10-04] MEDS: SOLU-MEDROL IV SCH ×3 (09:10→23:00)
[2018-10-04] MEDS: LOVENOX SUBQ SCH (09:10)
[2018-10-04] MEDS: LEXAPRO PO SCH (09:11)
[2018-10-04] MEDS: PROSCAR PO SCH (09:11)
[2018-10-04] MEDS: ASPIRIN PO SCH (09:11)
--- NOTE | 2018-10-04 13:35 | HEMO/ONC PROGRESS NOTE ---
DATE: 10/04/2018 SUBJECTIVE: The patient is sitting upright in bed, awake and alert with his son at bedside. He has his breakfast tray this morning; however, he is currently getting a respiratory breathing treatment. OBJECTIVE: Vital Signs: Temperature 99.0 degrees, pulse rate 7, respiratory rate 22, blood pressure 134/57, and 93% on Venturi mask at 15 L. Pain Scale: 0/10 pain. General: The patient is in no acute distress. Respiratory: Fine crackles at bilateral bases, left greater than right. Occasional wheezing on the right side. Cardiovascular: S1, S2 noted. Regular rate and rhythm. Abdomen: Soft, nontender, nondistended. Neurologic: Awake and oriented x3. No focal motor deficits. Lymphatic: No lymphadenopathy noted. DIAGNOSTIC STUDIES: WBC 16.23, hemoglobin 11.7, hematocrit 36.6, platelet count 765,000. Sodium 131, creatinine 0.5. Today's chest x-ray shows atelectasis versus pneumonia in the left lower lung with possible pulmonary edema. ASSESSMENT: 1. Acute hypoxemic respiratory failure. 2. Acute hypercapnic respiratory failure. 3. Pneumonia. 4. Bilateral pleural effusions. 5. 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 PLAN: Dr. Yanez discussed the plan with Dr. King to first treat him aggressively for pneumonia. We will continue nebulizers and steroids for possible COPD exacerbation. Suspect his infiltrates to be infectious in nature due to the rapid progression on his CT scan. His PET scan reveals pleural thickening and significant uptake in the pleural area with a maximal SUV of 15.9, which is particularly concerning for malignancy. Once his infectious disease is managed, we will consider biopsying his pleural mass for evaluation of malignancy. Dictated by ELY Randhawa for Harry Yanez MD Patient seen and examined. As above. Discussed with Dr. King. Plan for surgical consultation and possible VATS to obtain a diagnosis. Continue current management. Harry Yanez M.D. [facility]
[2018-10-04] MEDS: MAXIPIME 1 GM in NS 50 ML IV SCH ×2 (14:33→15:07)
[2018-10-04] MEDS ORDERED: ZYVOX 600 MG/D5W 600 MG/300 ML IVPB IV SCH (15:00)
[2018-10-04] MEDS ORDERED: MAXIPIME 2 GM in NS 50 ML IV SCH (15:00)
--- NOTE | 2018-10-04 15:13 | INFECTIOUS DISEASE CONSULT REP ---
DATE: 10/04/2018 CONCLUSION: The patient appears to have a pneumonia. However, the infiltrate could be due to the patient's lung cancer or possibly a lung cancer. RECOMMENDATIONS: I agree with treating the patient with cefepime and Zyvox. I have made Zyvox p.o. instead of IV. I have increased the dose of cefepime to 2 g IV every 12 hours[address] I agree with Dr. Evans ordering a procalcitonin and immunoglobulin levels. DISCUSSION: The patient, in the past 2 weeks, has had an increasing cough productive of a green to yellowish sputum. He also is dyspneic at rest but even more so when he exerts himself. He also has generalized weakness. His CBC shows a white count of 16,230, hemoglobin 11.7, and platelet count 765,000. Blood gases show a pH of 7.42, a PO2 of 67, and a pCO2 of 52. Creatinine is 0.5. GFR is greater than 60. Blood cultures are negative. Chest x-ray shows a left lower lobe pneumonia/atelectasis. Pulmonary angiogram showed bilateral pleural effusions, extensive pulmonary opacification, and mediastinal adenopathy. PAST MEDICAL HISTORY/REVIEW OF SYSTEMS: Eyes and Ears: He has decreased hearing but his vision is okay. Neck: No stiffness. Respiratory: See present illness. GI: No nausea, vomiting, or diarrhea. Genitourinary: No dysuria or flank pain. Bones, Joints, and Muscles: No swollen joint and no muscle tenderness. Neurologic: The patient is alert. He can move his extremities. There is no tremor. His sensation is intact to touch. His memory as regarding his medical history was slightly diminished. PREVIOUS HOSPITALIZATIONS AND OPERATIONS: Carotid endarterectomy, prostate surgery and appendectomy. MEDICAL DISEASES: Hypertension, stroke, prostate cancer, peripheral vascular disease, hyperlipidemia, arthritis, lung cancer or mesothelioma. INFECTIOUS DISEASES: No pneumonia or UTI. FAMILY HISTORY: Hypertension and cancer. [place]IAL H[place]ORY[place] . He lives with his son. The patient smokes cigarettes but does not use illicit drugs. He stopped drinking alcohol 2 years ago. Medications at home-Crestor, Proscar, Protonix, Requip. PHYSICAL EXAMINATION: Vital Signs: Temperature is 98.9 degrees, pulse 77, respirations 22, blood pressure 127/55, patient weighs 195 pounds. General: This is somewhat ill- appearing, elderly male. He is in no acute distress. Head, Eyes, Ears, Nose, and Throat: He can hear my spoken words and see near objects. He does not have any white coating on his tongue. He does have, extending from the roof of his mouth, a swelling which the patient told me that the dentist he went to said it was an infection. Neck: No meningismus. Lungs: Clear to auscultation. Cardiovascular: Heart rate is regular. Abdomen: Soft and nontender. Neurologic: The patient is alert. He can move his extremities. There is no tremor. His sensation is intact to touch. His memory as regarding his medical history was good. Integument: No rash. Thank you for the consult. cc: Shahram Li MD MTDD
--- NOTE | 2018-10-04 15:39 | GENERAL SURGERY CONSULTATION ---
DATE: 10/04/2018 REASON FOR CONSULTATION: Have been asked to see this patient regarding a possible thoracoscopy with biopsy. HISTORY OF PRESENT ILLNESS: Mr. Cutler is 77 years ago, was admitted on the with weakness, shortness of breath and coughing up colored sputum. He was admitted on the . A chest x-ray showed what appeared to be a left pleural effusion. Pulmonary arteriogram reveals some consolidation in his left lower lung and some effusion as well. Apparently, he had been seen as an outpatient by Dr. Yanez who had done a PET scan. There was some concern about mesothelioma due to the inflammatory appearance of his pleura. Clinically, however, he certainly has pneumonia. OTHER MEDICAL PROBLEMS: Include arthritis, depression, restless leg syndrome, hypertension, hyperlipidemia, history of CVA, history of prostate cancer and a carotid stenosis with endarterectomy. PREVIOUS SURGERY: Includes an appendectomy, prostatic seed implant, and a left carotid endarterectomy. SOCIAL HISTORY: He has not been smoking over the last couple years. Currently lives with his son. Denies any alcohol in the past 2 years. FAMILY HISTORY: Pertinent for dementia in his mother. MEDICATIONS: Listed. ALLERGIES: Has no known drug allergies. REVIEW OF SYSTEMS: As noted above. PHYSICAL EXAMINATION: Vital Signs: Currently he is afebrile, heart rate 77, blood pressure 127/55. General: He has an oxygen mask on. Neck: No cervical adenopathy. Lungs: Bilateral breath sounds. He has crackles in his left base. Heart: Regular rate and rhythm. Abdomen: Soft, nontender. Extremities: No peripheral edema. Neurologic: He is awake, alert and oriented. LABORATORY DATA AND DI[place]NOST[place]: [place] [address], hemoglobin 11.7, hematocrit 36.6. Gases, pCO2 is 52, PO2 is 67 on 50% Venti mask. His chest x-ray shows the consolidation in his left base. A CT scan does as well. ASSESSMENT AND PLAN: Left-sided pneumonia with incomplete expansion of his left lower lobe. There is some concern about mesothelioma as well. I discussed with him thoracoscopy with biopsy of his left lung, of his left pleural space. I will have to look at the timing with the operating room. cc: Ramirez Rivera MD
[2018-10-04] MEDS ORDERED: MAXIPIME 1 GM in NS 50 ML IV ONE (16:00)
[2018-10-04] MEDS ORDERED: LASIX IV ONE (20:00)
[2018-10-04] MEDS: MELATONIN PO SCH (22:00)
[2018-10-04] MEDS: CRESTOR PO SCH (22:00)
[2018-10-04] MEDS: REQUIP PO SCH (22:00)
[2018-10-04] MEDS: ZYVOX PO SCH ×2 (22:00→22:01)
[2018-10-04] MEDS: COLACE PO SCH (22:01)
[2018-10-04] MEDS: MIRALAX PO SCH (22:04)
[2018-10-05] MEDS ORDERED: MAXIPIME 2 GM in NS 50 ML IV SCH (03:00)
[2018-10-05] MEDS: DUONEB (A & A) INH SCH ×6 (03:29→22:55)
[2018-10-05 05:11] LABS: ALLEN TEST YES; BE 8.4 mmoll (-3.0-3.0); BLOOD TYPE ARTERIAL; HCO3-(ACT) 31.4 mmoll (20.0-26.0); METHB 0.7 % (0.0-1.5); O2(CT) 17.3 mL/dL (15.0-23.0); PCO2(98.6) 50 mmHg (35-45); PO2(98.6) 79 mmHg (60-100); SAMPLE BLOOD; THB 12.9 g/dL (11.5-17.4); pH(98.6) 7.44 (7.35-7.45)
[2018-10-05 05:12] LABS: MODALITY VENTIMASK
[2018-10-05] MEDS: PROTONIX PO SCH (06:34)
--- NOTE | 2018-10-05 06:40 | Diag Imaging Result Doc PS360 ---
EXAM: CHEST-1 VIEW HISTORY: SOB TECHNIQUE: Portable chest single view COMPARISON: 10/04/2018 FINDINGS: There is a moderate-sized left pleural effusion. There are infiltrates in the mid and lower left lung with left basilar atelectasis. Heart is mildly enlarged. Mild vascular distention. IMPRESSION: No significant interval improvement. Electronically signed by Van Escobedo 10/05/2018 6:38 AM
--- NOTE | 2018-10-05 06:53 | PROGRESS NOTE ---
DATE: 10/04/2018 SUBJECTIVE: The patient is resting comfortably in bed. He states that he does feel short of breath. He is currently on Ventimask. OBJECTIVE: Vital Signs: Temperature 98.4 degrees, blood pressure 112/56, heart rate 72, respirations 18, O2 saturation 96% on Venturi mask, intake 610, output 1.2 L. General: This is a chronically ill-appearing male lying in bed in no acute distress. Heart: S1, S2 normal regular rate and rhythm. Lungs: Diminished breath sounds. No wheezing, no rales. Abdomen: Positive bowel sounds, soft, nontender, nondistended. Extremities: No edema, no cyanosis. Neuro: The patient is alert and oriented x4. LABS: White blood cell count 16, hemoglobin 11, hematocrit 36, platelets 765,000. Sodium 131, potassium 4.7, chloride 93, CO2 33, BUN 26, creatinine 0.5, glucose 85. ProBNP 2961, albumin 2.6. Chest x-ray shows pneumonia with pulmonary edema. ASSESSMENT AND PLAN: 1. Acute on chronic hypoxemic and hypercapnic respiratory failure. The patient remains on a Venturi mask. This chest x-ray shows pulmonary edema as well as pneumonia. Will continue with the current treatment regimen. 2. Pneumonia. Continue with IV antibiotic therapy. Will consult Dr. Li, will also check immunoglobulin level and procalcitonin. 3. Pulmonary edema. Will start the patient diuretic therapy and monitor his response. 4. 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 General surgery has been consulted for the management as per the deliverer merchandise and Oncology. 5. History of prostate cancer. Aware. 6. Leukocytosis. Slowly improving. Continue with antibiotic therapy. 7. Insomnia. Continue melatonin. 8. Constipation. Will start the patient on scheduled laxative therapy. 9. Thrombocytosis. Will monitor closely. 10. Deep vein thrombosis prophylaxis, continue on Lovenox. cc: Melissa Evans MD MTDD
[2018-10-05] MEDS: PULMICORT INH SCH ×2 (07:38→20:00)
[2018-10-05] MEDS: MUCOMYST 20% INH SCH ×2 (07:38→20:00)
[2018-10-05 08:09] LABS: BASO# 0.02 X1000 (0.0-0.2); BASO% 0.1 % (0.0-0.8); EOS# 0.02 X1000 (0.0-0.7); EOS% 0.1 % (0.0-10.0); HEMATOCRIT 38.2 % (42.0-52.0); HEMOGLOBIN 12.5 g/dL (14.0-18.0); IMM GRAN# 0.27 X1000 (0.0-0.04); IMM GRAN% 1.7 % (0.0-0.5); LYMPH# 1.15 X1000 (1.2-3.4); LYMPH% 7.4 % (20.5-51.1); MCHC 32.7 g/dL (33-37); MCV 88.6 FL (81-99); MONO# 1.57 X1000 (0.11-0.59); MONO% 10.1 % (1.7-9.3); MPV 8.8 FL (7.4-10.4); NEUT# 12.46 X1000 (1.4-6.5); NEUT% 80.6 % (42.2-75.2); PLT 783 X1000 (130-400); RBC 4.31 XMIL (4.7-6.1); RDW 13.7 % (11.5-14.5); WBC 15.49 X1000 (4.8-10.8)
[2018-10-05 08:25] LABS: AGAP 6; BUN 27 mg/dL (8-22); CHLORIDE 90 mmol/L (98-107); COSMO 266; CREATININE 0.6 mg/dL (0.7-1.2); ESTIMATED GFR > 60; GLUCOSE 125 mg/dL (70-104); POTASSIUM 5.1 mmol/L (3.5-5.1); SODIUM 129 mmol/L (136-145); TCO2 33 mmol/L (25-35)
[2018-10-05] MEDS: SOLU-MEDROL IV SCH ×3 (09:16→22:45)
[2018-10-05] MEDS: MIRALAX PO SCH ×2 (09:16→21:24)
[2018-10-05] MEDS: COLACE PO SCH ×2 (09:16→21:23)
[2018-10-05] MEDS: PROSCAR PO SCH (09:16)
[2018-10-05] MEDS: LOVENOX SUBQ SCH (09:16)
[2018-10-05] MEDS: ASPIRIN PO SCH (09:16)
[2018-10-05] MEDS: ZYVOX PO SCH ×2 (09:16→21:23)
[2018-10-05] MEDS: LASIX IV SCH (09:16)
[2018-10-05 09:27] LABS: ANISOCYTOSIS 1+; LARGE PLATELETS 1+; LYMPHS 9 % (21-51); MICROCYTOSIS 1+; MONO 11 % (1-9); SEGS 80 % (42-75)
--- NOTE | 2018-10-05 10:45 | HEMO/ONC PROGRESS NOTE ---
DATE: 10/05/2018 SUBJECTIVE: The patient is sitting upright in bed, currently receiving a breathing treatment. He states he had a good evening. He was placed on BiPAP overnight. He states he is feeling better than he did yesterday. OBJECTIVE: Vital Signs: Temperature 97.8 degrees, pulse rate 66, blood pressure 137/62, O2 saturation 94% on Venturi mask at 15 L, and 0/10 pain. General: The patient is in no acute distress. Respiratory: Diminished breath sounds in the right lung base. Fine crackles at bilateral bases. Cardiovascular: S1, S2 noted. Regular rate and rhythm. Abdomen: Soft, nontender, nondistended. Neurological: Alert and oriented x3. No motor deficits noted. Extremities: No edema noted. IMAGING AND LABORATORY DATA: White blood cells 15.49, hemoglobin 12.5, hematocrit 38.2, platelet count 783,000. Sodium 129, creatinine 0.6. Today's chest x-ray shows no significant interval improvement. There is a moderate-sized left pleural effusion, infiltrates in the mid and lower left lung, with left basilar atelectasis. ASSESSMENT: 1. Acute hypoxemic respiratory failure. 2. Acute hypercapnic respiratory failure. 3. Pneumonia. 4. Bilateral pleural effusions. 5. 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 PLAN: The patient is continuing to wear a Venturi mask. We will continue the treatment for pneumonia per Dr. King and Dr. Li with antibiotics and steroids. There has been a surgical consult regarding a thoracoscopy with biopsy of his left lung of the pleural space. Dictated by ELY Randhawa for Harry Yanez MD Patient seen and examined. As above. Dr. Rivera has been consulted for thoracoscopy with biopsy. Continue current management. We will get patient out of bed. Continue protein shakes. Continue current management. Harry Yanez M.D. cc: Harry Yanez MD [facility]
[2018-10-05] MEDS: MAXIPIME 2 GM in NS 100 ML IV SCH (15:30)
--- NOTE | 2018-10-05 16:04 | INFECTIOUS DISEASE PROGRESS NO ---
DATE: 10/05/2018 PRESENT ILLNESS: Mr. Cutler is being treated for the possibility of pneumonia. However, there is a procalcitonin level of less than 0.10 which makes it is very unlikely that pneumonia is present. There is the possibility of lung cancer versus mesothelioma underlying. The patient also has a leukocytosis which is improving. MEDICATIONS: He is receiving Zyvox 600 mg by mouth every 12 hours and cefepime 2 g IV every 12 hours. He is also receiving IV steroids. PHYSICAL EXAMINATION: Vital Signs: Temperature is 97.4 degrees, pulse rate 94, respiratory rate 16, blood pressure 132/71, O2 saturation is 96% on a 50% Ventimask. General: This is an elderly, chronically ill-appearing gentleman. He is sitting up in the chair, currently in no acute distress. HEENT: Atraumatic, normocephalic. Oral mucous membranes are pink and moist. He does complain of an abscess to the hard palate, near the front teeth. Oral mucous membranes are pink and moist. Conjunctivae are pink. Neck: Supple. Trachea is midline. Cardiovascular: Heart rate and rhythm are regular. Normal sinus rhythm on the monitor. Respiratory: Lung sounds are clear to auscultation bilaterally. No work of breathing is noted. Abdomen: Soft, round, nontender. Bowel sounds are active. Neurologic: He is awake, alert, and oriented. Able to move all extremities with generalized weakness noted. LABORATORY AND X-RAY: Today his white count is 15.49, hemoglobin 12.5, platelet count 783,000. On a 50% Ventimask this morning his pH was 7.44, pCO2 50, PO2 79, HC03 31.4. Creatinine is 0.6. Estimated GFR is greater than 60. His procalcitonin level is less than 0.10. Immunoglobulin levels show an IgA of 365, an IgG of 834. Blood cultures have shown no growth after 48 hours. Chest x-ray today shows no significant interval improvement, with infiltrates in the mid and lower left lung, with basilar atelectasis. ASSESSMENT AND PLAN: Mr. Cutler is being treated for pneumonia. He is feeling better today. Although his procalcitonin level is low, we will go ahead and continue the cefepime and Zyvox for now, for the possibility of any underlying pneumonia. There is a leukocytosis, which is improving, but the patient is also receiving steroids. His immunoglobulin levels today are normal. These plans have been discussed with and recommended by Dr. Li. COMORBIDITIES: For Mr. Cutler include that he is elderly with peripheral vascular disease, arthritis, and lung cancer versus mesothelioma. Dictated by ELY Chow for Shahram Li MD cc: Shahram Li MD MTDD
--- NOTE | 2018-10-05 18:09 | PROGRESS NOTE ---
DATE: 10/05/2018 SUBJECTIVE: The patient is resting comfortably. He remains on a Venturi mask. OBJECTIVE: Vital Signs: Temperature 97.7 degrees, blood pressure 119/61, heart rate 91, respirations 27, O2 saturation 96% on the Venturi mask, intake 212, output 2.7 L. General: This is a chronically ill-appearing elderly male lying in bed in no acute distress. Heart: S1, S2 normal. Lungs: Coarse breath sounds bilaterally. Abdomen: Positive bowel sounds. Soft, nontender, nondistended. Extremities: No edema, no cyanosis, no calf tenderness. Neurologic: The patient is alert and oriented x3. LABORATORY DATA: White blood cell count 15, hemoglobin 12, hematocrit 38, platelets 783,000. Sodium 129, potassium 5.1, chloride 90, CO2 33, BUN 27, creatinine 0.6, glucose 125. IMAGING: Chest x-ray shows a moderate-sized left pleural effusion. Infiltrates in the lower left lung. ASSESSMENT AND PLAN: 1. Acute on chronic hypercapnic and hypoxemic respiratory failure. Multifactorial. 2. Pneumonia. Continue with antibiotic therapy as directed by Dr. Li. 3. Moderate left pleural effusion. Continue with diuretic therapy. 4. Suspected lung cancer. Oncology and General Surgery are following. 5. Leukocytosis. Slowly improving. Continue with antibiotic therapy. 6. Pulmonary edema. Continue with diuretic therapy. 7. Insomnia. Continue on melatonin. 8. Constipation. Continue with scheduled laxative therapy. 9. Deep vein thrombosis prophylaxis. Continue on Lovenox. cc: Melissa Evans MD
--- NOTE | 2018-10-05 20:13 | GENERAL SURGERY PROGRESS NOTE ---
DATE: 10/05/2018 Mr. Cutler is afebrile. Heart rate is 91, blood pressure 119/61. He has diminished breath sounds in the left base. White count is down to 15,400. His chest x-ray still shows some left pleural effusion at the base. ASSESSMENT: He will come to thoracoscopy, possible thoracotomy, for removal of the fluid, possible decortication, and biopsy of the pleura. I am not sure he is physically ready for that intervention. I will follow him along daily and decide when it would be best to intervene. cc: Ramirez Rivera MD
[2018-10-05] MEDS: CRESTOR PO SCH (21:23)
[2018-10-05] MEDS: LACTULOSE PO SCH (21:23)
[2018-10-05] MEDS: REQUIP PO SCH (21:23)
[2018-10-05] MEDS: MELATONIN PO SCH (21:23)
[2018-10-06] MEDS: DUONEB (A & A) INH SCH ×6 (03:20→23:35)
[2018-10-06] MEDS: DULCOLAX PR SCH ×2 (03:58→22:51)
[2018-10-06] MEDS: MAXIPIME 2 GM in NS 100 ML IV SCH ×2 (04:07→15:09)
[2018-10-06 05:17] LABS: ALLEN TEST YES; BE 8.6 mmoll (-3.0-3.0); BLOOD TYPE ARTERIAL; HCO3-(ACT) 31.6 mmoll (20.0-26.0); METHB 1.2 % (0.0-1.5); O2(CT) 17.2 mL/dL (15.0-23.0); O2HB 95.1 % (95.0-99.0); PO2(98.6) 82 mmHg (60-100); SAMPLE BLOOD; SAO2 97.9 % (95.0-100.0); THB 12.8 g/dL (11.5-17.4); pH(98.6) 7.43 (7.35-7.45)
[2018-10-06 05:29] LABS: PCO2(98.6) 52 mmHg (35-45)
[2018-10-06 05:30] LABS: MODALITY VENTIMASK
[2018-10-06] MEDS: PROTONIX PO SCH (06:31)
--- NOTE | 2018-10-06 07:19 | Diag Imaging Result Doc PS360 ---
EXAM: CHEST-1 VIEW 10/06/2018 HISTORY: SOB TECHNIQUE: AP portable at 0610 COMMENT: Compared to the previous examination of 10/05/2018, there is decreased opacification of the lingula. There is still opacification and volume loss in the left lower lobe. IMPRESSION: Improving pneumonia on the left. Electronically signed by Rudolph Thomson 10/06/2018 7:16 AM
[2018-10-06] MEDS: PULMICORT INH SCH ×2 (07:41→20:05)
[2018-10-06] MEDS: MUCOMYST 20% INH SCH ×2 (07:41→20:05)
[2018-10-06 07:46] LABS: BASO# 0.03 X1000 (0.0-0.2); BASO% 0.2 % (0.0-0.8); EOS# 0.05 X1000 (0.0-0.7); EOS% 0.3 % (0.0-10.0); HEMOGLOBIN 12.8 g/dL (14.0-18.0); IMM GRAN# 0.37 X1000 (0.0-0.04); IMM GRAN% 2.1 % (0.0-0.5); LYMPH# 1.41 X1000 (1.2-3.4); LYMPH% 7.9 % (20.5-51.1); MCH 29.4 PG (27-31); MCHC 32.8 g/dL (33-37); MCV 89.4 FL (81-99); MONO# 2.05 X1000 (0.11-0.59); MONO% 11.5 % (1.7-9.3); NEUT# 13.98 X1000 (1.4-6.5); PLT 775 X1000 (130-400); RBC 4.36 XMIL (4.7-6.1); RDW 13.8 % (11.5-14.5); WBC 17.89 X1000 (4.8-10.8)
[2018-10-06 08:18] LABS: AGAP 7; BUN 33 mg/dL (8-22); CALCIUM 8.9 mg/dL (8.8-10.2); CHLORIDE 93 mmol/L (98-107); COSMO 272; CREATININE 0.6 mg/dL (0.7-1.2); ESTIMATED GFR > 60; GLUCOSE 101 mg/dL (70-104); SODIUM 132 mmol/L (136-145); TCO2 32 mmol/L (25-35)
[2018-10-06] MEDS: SOLU-MEDROL IV SCH ×4 (08:52→22:53)
[2018-10-06] MEDS: LACTULOSE PO SCH ×2 (08:52→22:51)
[2018-10-06] MEDS: ZYVOX PO SCH ×2 (08:52→21:39)
[2018-10-06] MEDS: LOVENOX SUBQ SCH (08:52)
[2018-10-06] MEDS: LASIX IV SCH (08:52)
[2018-10-06] MEDS: COLACE PO SCH ×2 (08:53→21:39)
[2018-10-06] MEDS: ASPIRIN PO SCH (08:53)
[2018-10-06] MEDS: MIRALAX PO SCH ×2 (08:53→22:51)
[2018-10-06] MEDS: PROSCAR PO SCH (08:53)
[2018-10-06] MEDS: AYR NASAL SPRAY NAS PRN ×2 (14:03→21:40)
--- NOTE | 2018-10-06 14:06 | HEMO/ONC PROGRESS NOTE ---
DATE: 10/06/2018 SUBJECTIVE: The patient is sitting upright in bed. He states he had a rough night. The BiPAP gave him an anxiety attack last night. He did not sleep well afterwards. His shortness of breath has not improved and he does not feel that much better today. His son is at the bedside, getting ready to help him with breakfast. OBJECTIVE: Vital Signs: Temperature 97.8 degrees, pulse rate 67, respiratory rate 19, blood pressure 150/67, O2 saturation 97% on a Venturi mask, 0/10 pain. Physical Examination: General: The patient is in no acute distress. He is wearing a Venturi mask. Respiratory: Diminished breath sounds in the right lung base and crackles at bilateral bases. Cardiovascular: S1, S2 noted. Regular rate and rhythm. Abdomen: Soft, nontender, nondistended. Neurological: Awake, alert, and oriented x3. No focal motor deficits noted. Extremities: No edema noted. Laboratories: WBCs 17.89, hemoglobin 12.8, hematocrit 39.0, platelet count 775,000. Sodium 132. ProBNP 795. His chest x-ray from this morning shows improvement in pneumonia on the left. ASSESSMENT: 1. Acute hypoxemic respiratory failure. 2. Acute hypercapnic respiratory failure. 3. Pneumonia. 4. Bilateral pleural effusions. 5. 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 PLAN: The patient continues to wear a Venturi mask. Continues BiPAP at night. Dr. King is continuing to diurese him for pulmonary edema. Dr. Li is continuing to treat him with antibiotics for pneumonia. Dr. Rivera is continuing to follow him regarding thoracoscopy with biopsy. From our standpoint, we will wait for biopsy, the patient needs to continue protein shakes, get out of bed as often as possible, and continue current management. Dictated by ELY Randhawa for Harry Yanez MD cc: Harry [facility]z [facility]
[2018-10-06] MEDS ORDERED: SORBITOL PO ONE (16:39)
--- NOTE | 2018-10-06 18:08 | PROGRESS NOTE ---
DATE: 10/06/2018 SUBJECTIVE: The patient states that he did not sleep well all night. He stated that he could not tolerate wearing the BiPAP at all. OBJECTIVE: Vital Signs: Temperature 98.1 degrees, blood pressure 137/71, heart rate 70, respirations 18, O2 saturation is 96% on Venturi mask. Intake 268. Output 2.1 L. General: This is a chronically ill-appearing, elderly male lying in bed, in no acute distress. Heart: S1, S2 normal. Regular rate and rhythm. Lungs: Equal air entry bilaterally. Diminished breath sounds at the bases. Abdomen: Positive bowel sounds. Soft, nontender, nondistended. Extremities: No edema. No cyanosis. No calf tenderness. Neurologic: The patient is alert and oriented x3. LABS: White blood cell count 17, hemoglobin 12, hematocrit 39, platelets 775,000. Sodium 132, potassium 5, chloride 93, CO2 32, BUN 33, creatinine 0.6, glucose 101. ASSESSMENT AND PLAN: 1. Acute on chronic hypercapnic and hypoxemic respiratory failure. Continue to treat the underlying issues. 2. Pneumonia. The chest x-ray today shows some improvement. Continue with antibiotic therapy as directed by Dr. Li. 3. Moderate left pleural effusion. Continue with diuretic therapy and monitor for improvement. 4. 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 General Surgery is following for an eventual biopsy. 5. Leukocytosis. Unchanged. Continue with antibiotic therapy. 6. Hyperkalemia. We will continue to monitor this closely. 7. Pulmonary edema. Improved. Continue with diuretic therapy. 8. Insomnia. We will increase melatonin dosage. 9. Constipation. We will order an abdominal x-ray. We will also adjust the patient's laxative regimen. 10. Restless legs syndrome. Continue on Requip. 11. Hyponatremia. Will check urine sodium and a urine osmolality. 12. Chronic obstructive pulmonary disease exacerbation. Continue with bronchodilator therapy, supplemental oxygen, and IV steroids. 13. Deep vein thrombosis prophylaxis. Continue on Lovenox. cc: Melissa Evans MD MTDD
[2018-10-06 18:21] LABS: BASO# 0.07 X1000 (0.0-0.2); BASO% 0.4 % (0.0-0.8); EOS# 0.07 X1000 (0.0-0.7); EOS% 0.4 % (0.0-10.0); HEMATOCRIT 42.5 % (42.0-52.0); IMM GRAN# 0.45 X1000 (0.0-0.04); IMM GRAN% 2.4 % (0.0-0.5); LYMPH# 1.07 X1000 (1.2-3.4); LYMPH% 5.6 % (20.5-51.1); MCH 29.5 PG (27-31); MCHC 32.9 g/dL (33-37); MCV 89.7 FL (81-99); MONO# 1.18 X1000 (0.11-0.59); MONO% 6.2 % (1.7-9.3); NEUT# 16.15 X1000 (1.4-6.5); PLT 853 X1000 (130-400); RBC 4.74 XMIL (4.7-6.1); RDW 13.9 % (11.5-14.5); WBC 18.99 X1000 (4.8-10.8)
[2018-10-06 19:02] LABS: LARGE PLATELETS OCCASIONAL; LYMPHS 7 % (21-51); MONO 3 % (1-9); SEGS 90 % (42-75)
--- NOTE | 2018-10-06 21:18 | INFECTIOUS DISEASE PROGRESS NO ---
DATE: 10/06/2018 PRESENT ILLNESS: The patient is being treated for possibly pneumonia. There is a good chance, unfortunately, that the patient has only lung cancer and/or mesothelioma rather than a pneumonia in view of the fact that the procalcitonin is less than 0.1. MEDICATIONS: This is the 2nd day of treatment with cefepime and Zyvox. The patient also is getting steroids. PHYSICAL EXAMINATION: Vital Signs: Temperature is 97.8 degrees, pulse 67, respirations 19, blood pressure is 150/67. General: This is an ill-appearing elderly male. He is in no acute distress. Head, eyes, ears, nose, and throat: He can hear my spoken words and see near objects. He does not have any white coating of his tongue. Neck: He does not have any pain when he moves his head. Lungs: There are left lower lobe rales. The rest of the left lung and right lung are clear. Cardiovascular: Heart rate is regular. Abdomen: Soft and nontender. Neurologic: The patient is alert. He can move his extremities, although he is weak. LABORATORY AND X-RAY: Chest x-ray shows improvement in the left lung infiltrate. Creatinine is 0.6. As mentioned above, the procalcitonin is less than 0.1. CBC shows a white count of 17,890, hemoglobin 12.8. Platelet count is 775,000. Blood gases show a pH of 7.43, a pO2 of 82, and a pCO2 of 52. ASSESSMENT AND PLAN: The patient has possibility of lung cancer versus mesothelioma. His likelihood of having a pneumonia seems to be not very likely in view of the fact of the low procalcitonin. However, the patient does have a leukocytosis which would be going along with a bacterial infection, and also the patient's chest x-ray today showed some improvement. The fact that the patient is getting steroids could also be causing elevation of his white blood cell count. COMORBIDITIES: The patient is elderly. He has peripheral vascular disease and arthritis, and he has lung cancer versus mesothelioma. cc: Shahram Li MD
[2018-10-06] MEDS: CRESTOR PO SCH (21:39)
[2018-10-06] MEDS: REQUIP PO SCH (21:39)
[2018-10-06] MEDS: MELATONIN PO SCH (21:39)
[2018-10-07] MEDS: DUONEB (A & A) INH SCH ×7 (03:05→22:58)
[2018-10-07 04:36] LABS: ALLEN TEST YES; BE 9.1 mmoll (-3.0-3.0); BLOOD TYPE ARTERIAL; HCO3-(ACT) 31.9 mmoll (20.0-26.0); PO2(98.6) 71 mmHg (60-100); SAMPLE BLOOD; pH(98.6) 7.43 (7.35-7.45)
[2018-10-07 04:37] LABS: MODALITY VENTIMASK; PCO2(98.6) 53 mmHg (35-45)
[2018-10-07] MEDS: MAXIPIME 2 GM in NS 100 ML IV SCH ×2 (04:39→18:25)
[2018-10-07] MEDS: PROTONIX PO SCH (06:29)
[2018-10-07 07:54] LABS: AGAP 8; BUN 37 mg/dL (8-22); CALCIUM 8.5 mg/dL (8.8-10.2); CHLORIDE 90 mmol/L (98-107); COSMO 267; CREATININE 0.6 mg/dL (0.7-1.2); ESTIMATED GFR > 60; GLUCOSE 79 mg/dL (70-104); POTASSIUM 4.3 mmol/L (3.5-5.1); SODIUM 129 mmol/L (136-145); TCO2 31 mmol/L (25-35)
[2018-10-07] MEDS ORDERED: CHLORASEPTIC SPRAY MT PRN (08:27)
[2018-10-07] MEDS: PULMICORT INH SCH ×2 (08:33→20:45)
[2018-10-07] MEDS: MUCOMYST 20% INH SCH ×2 (08:33→20:45)
--- NOTE | 2018-10-07 08:40 | Diag Imaging Result Doc PS360 ---
EXAM: FLAT/UPRIGHT ABD/1 VIEW CHEST HISTORY: pneumonia/constipation TECHNIQUE: Flat and upright with chest, three views COMPARISON: 10/06/2018 FINDINGS: There are dense infiltrates in the mid and lower left lung with small left pleural effusion. The appearance of the chest is prior exam. No free air beneath the diaphragm. There is stool throughout the colon. No bowel obstruction. No organomegaly. Severe atherosclerosis. Mild scoliosis with prominent degenerative spine changes. There are prostate implants. IMPRESSION: 1.Left pneumonia with a small left effusion similar to the prior study 2.Constipation Electronically signed by Van Escobedo 10/07/2018 8:38 AM
[2018-10-07] MEDS: LASIX IV SCH (09:39)
[2018-10-07] MEDS: COLACE PO SCH ×2 (09:39→21:17)
[2018-10-07] MEDS: ASPIRIN PO SCH (09:39)
[2018-10-07] MEDS: ZYVOX PO SCH ×2 (09:40→21:17)
[2018-10-07] MEDS: PROSCAR PO SCH (09:40)
[2018-10-07] MEDS: MIRALAX PO SCH ×2 (09:40→21:21)
[2018-10-07] MEDS: SOLU-MEDROL IV SCH ×3 (09:40→21:18)
[2018-10-07] MEDS: LACTULOSE PO SCH ×2 (09:40→21:21)
[2018-10-07] MEDS: LOVENOX SUBQ SCH (09:40)
[2018-10-07] MEDS ORDERED: FLEET MINERAL OIL ENEMA PR ONE (11:01)
[2018-10-07] MEDS ORDERED: SAMSCA PO ONE (17:50)
[2018-10-07] MEDS: REQUIP PO SCH (21:17)
[2018-10-07] MEDS: MELATONIN PO SCH (21:18)
[2018-10-07] MEDS: CRESTOR PO SCH (21:18)
[2018-10-07] MEDS: DULCOLAX PR SCH (21:21)
--- NOTE | 2018-10-08 00:15 | PULMONOLOGY PROGRESS NOTE ---
DATE: 10/07/2018 SUBJECTIVE: The patient is awake, alert, and conversant. He is without specific complaints. OBJECTIVE: Vital Signs: BP 136/72, heart rate 113, respiratory rate 16, oxygen saturation 96% on supplemental oxygen. HEENT: Pupils are equal and reactive. Oropharynx is clear. Neck: Supple. Chest: Reveals shallow breath sounds bilaterally with bibasilar crackles. Cardiac: S1, S2. Abdomen: Soft. Extremities: Reveal trace edema. LABORATORIES: Arterial blood gas reveals a pH 7.43, pCO2 of 53, PO2 of 71. Immunoglobulin levels are normal. CEA level is normal. Anion gap has been slightly reduced. IMPRESSION: Interesting 77-year-old with history of tobacco use, limited asbestos exposure, who has a CT scan which shows a component of fibrosis bilaterally with a prominent area of peripheral consolidation. This does not appear to be overt pleural involvement. Pattern not typical for the idiopathic pulmonary fibrosis. 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 CEA level is normal. 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 RECOMMENDATION: 1. Continue oxygen and BiPAP as needed for hypoxemic and hypercapnic respiratory failure. 2. Send a serum protein electrophoresis. 3. Anticipate need for biopsy, although he is at an increased risk for biopsy complications. cc: Fadi Miles MD
[2018-10-08] MEDS: SOLU-MEDROL IV SCH ×4 (00:55→23:32)
[2018-10-08] MEDS: MAXIPIME 2 GM in NS 100 ML IV SCH ×2 (02:51→15:31)
[2018-10-08] MEDS: DUONEB (A & A) INH SCH ×6 (04:19→23:20)
[2018-10-08 04:51] LABS: ALLEN TEST YES; BE 8.3 mmoll (-3.0-3.0); BLOOD TYPE ARTERIAL; HCO3-(ACT) 31.4 mmoll (20.0-26.0); METHB 1.4 % (0.0-1.5); O2(CT) 18.4 mL/dL (15.0-23.0); PCO2(98.6) 47 mmHg (35-45); PO2(98.6) 157 mmHg (60-100); SAMPLE BLOOD; SAO2 99.6 % (95.0-100.0); THB 13.3 g/dL (11.5-17.4); pH(98.6) 7.46 (7.35-7.45)
[2018-10-08 04:52] LABS: MODALITY VENTIMASK
[2018-10-08] MEDS: PROTONIX PO SCH (06:26)
[2018-10-08] MEDS: PULMICORT INH SCH ×2 (08:00→20:03)
[2018-10-08] MEDS: MUCOMYST 20% INH SCH ×2 (08:00→20:03)
[2018-10-08 08:08] LABS: BASO# 0.04 X1000 (0.0-0.2); BASO% 0.2 % (0.0-0.8); EOS# 0.02 X1000 (0.0-0.7); EOS% 0.1 % (0.0-10.0); HEMATOCRIT 40.5 % (42.0-52.0); HEMOGLOBIN 13.2 g/dL (14.0-18.0); IMM GRAN% 2.5 % (0.0-0.5); LYMPH# 1.38 X1000 (1.2-3.4); LYMPH% 6.9 % (20.5-51.1); MCH 29.4 PG (27-31); MCHC 32.6 g/dL (33-37); MCV 90.2 FL (81-99); MONO# 1.71 X1000 (0.11-0.59); MONO% 8.6 % (1.7-9.3); MPV 9.2 FL (7.4-10.4); NEUT# 16.26 X1000 (1.4-6.5); NEUT% 81.7 % (42.2-75.2); PLT 766 X1000 (130-400); RBC 4.49 XMIL (4.7-6.1); RDW 14.1 % (11.5-14.5); WBC 19.91 X1000 (4.8-10.8)
--- NOTE | 2018-10-08 08:42 | Diag Imaging Result Doc PS360 ---
CHEST-1 VIEW - 10/08/2018 INDICATION: SOB COMPARISON: 10/07/2018 FINDINGS: Stable left basilar opacification. The right lung remains clear. Stable infiltrate throughout the left upper lobe. Heart size remains top normal. IMPRESSION: No change from prior. Electronically signed by Beck Blake 10/08/2018 8:40 AM
[2018-10-08 08:44] LABS: AGAP 11; ALB/GLOB RATIO 1.3; ALBUMIN 3.3 g/dL (3.5-5.0); ALKALINE PHOSPHATASE 67 U/L (32-122); BUN 30 mg/dL (8-22); CALCIUM 8.8 mg/dL (8.8-10.2); CHLORIDE 92 mmol/L (98-107); COSMO 274; CREATININE 0.6 mg/dL (0.7-1.2); ESTIMATED GFR > 60; GLUCOSE 121 mg/dL (70-104); GOT 10 U/L (10-34); GPT 44 U/L (10-44); POTASSIUM 4.5 mmol/L (3.5-5.1); SODIUM 133 mmol/L (136-145); TCO2 30 mmol/L (25-35); TOTAL BILIRUBIN 0.36 mg/dL (0.20-1.00); TOTAL PROTEIN 5.9 g/dL (6.3-8.3)
[2018-10-08] MEDS: LACTULOSE PO SCH ×2 (10:05→20:23)
[2018-10-08] MEDS: MIRALAX PO SCH ×2 (10:05→20:24)
[2018-10-08] MEDS: COLACE PO SCH ×2 (10:06→20:23)
[2018-10-08] MEDS: ASPIRIN PO SCH (10:06)
[2018-10-08] MEDS: PROSCAR PO SCH (10:06)
[2018-10-08] MEDS: LOVENOX SUBQ SCH (10:06)
[2018-10-08] MEDS: ZYVOX PO SCH ×2 (10:06→20:23)
[2018-10-08] MEDS: XANAX PO PRN (13:03)
--- NOTE | 2018-10-08 19:16 | PROGRESS NOTE ---
DATE: 10/08/2018 SUBJECTIVE: The patient is resting comfortably. He states that he has not slept well since he has been in the hospital. He also complains of anxiety. OBJECTIVE: Vital signs: Temperature 97.8 degrees, blood pressure 116/46, heart rate 85, respirations 18, O2 saturation is 100% on Venturi mask. Intake 100, output 1 L.General: This is a chronically ill-appearing elderly male, lying in bed in no acute distress. Head normocephalic, atraumatic. Heart: S1, S2 normal. Regular rate and rhythm. Lungs: Diminished breath sounds bilaterally. No crackles. No wheezing. No rales. Abdomen: Positive bowel sounds. Soft, nontender, nondistended. Extremities: No edema. No cyanosis. No calf tenderness. Neurologic: The patient is alert and oriented x4. LABORATORY DATA: White blood cell count 19, hemoglobin 13, hematocrit 40, platelets 766,000. ABG pH is 7.46, pCO2 is 47, pO2 is 157, bicarbonate 31. Sodium 133, potassium 4.5, chloride 92, CO2 is 30, BUN 30, creatinine 0.6, glucose 121. DIAGNOSTIC DATA: Chest x-ray shows a stable infiltrate in the left upper lobe. ASSESSMENT AND PLAN: 1. Acute on chronic hypoxemic and hypercapnic respiratory failure. Continue with the current treatment regimen. 2. Pneumonia. Continue with antibiotic therapy as directed by Dr. Li. 3. Left pleural effusion. Stable. 4. Leukocytosis. The patient is on steroids. Will continue on IV antibiotic therapy. 5. 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 General Surgery is following for an eventual biopsy. 6. Insomnia. We will restart the trazodone. 7. Constipation. Continue with scheduled laxative therapy. The patient states that he had 2 bowel movements yesterday. 8. Restless legs syndrome. Continue on Requip. 9. Hyponatremia. Improved. The patient received a dose of [place]sca yesterday. 10. Chronic obstructive pulmonary disease exacerbation. The patient is on steroids, bronchodilator therapy and supplemental oxygen. 11. Deep vein thrombosis prophylaxis. Continue on Lovenox. cc: Melissa Evans MD [facility]
[2018-10-08] MEDS: REQUIP PO SCH (20:22)
[2018-10-08] MEDS: MELATONIN PO SCH (20:22)
[2018-10-08] MEDS: DESYREL PO SCH (20:22)
[2018-10-08] MEDS: CRESTOR PO SCH (20:23)
--- NOTE | 2018-10-08 21:40 | PULMONOLOGY PROGRESS NOTE ---
DATE: 10/08/2018 SUBJECTIVE: The patient is awake, alert, and conversant. He is "tired of being in the hospital." He is without new complaints. OBJECTIVE: Vital Signs: Blood pressure 126/60, heart rate 97, respiratory rate 16, oxygen saturation 97% on Venturi mask. HEENT: Pupils are equal and reactive. Oropharynx appears clear. Neck: Supple. Chest: Reveals good air entry in the upper lobes with decreased breath sounds, left greater than right base. Cardiac exam: S1, S2. Abdomen: Soft. Extremities: Without edema. LABORATORIES: Arterial blood gas on 50% Venturi mask: pH 7.46, pCO2 of 47, pO2 of 157. Chest x- ray reveals minor changes at the right base, with extensive parenchymal and pleural changes on the left. IMPRESSION: A 77-year-old with: 1. History of tobacco use. 2. History of asbestos exposure which was limited. 3. Pulmonary fibrosis. 4. Peripheral consolidation of the lungs, inferior, left greater than right. RECOMMENDATIONS: 1. Continue oxygen and BiPAP. 2. Await report of serum protein electrophoresis. 3. Anticipate the need for biopsy for definitive results of his abnormal pleural/parenchymal consolidation. cc: Fadi Miles MD MTDD
--- NOTE | 2018-10-08 21:42 | INFECTIOUS DISEASE PROGRESS NO ---
DATE: 10/08/2018 PRESENT ILLNESS: The patient has upper and lower infiltrates in the left lung. He is being treated with antibiotics because there is possibility that he has an infection, but more likely than not the patient has lung cancer and/or mesothelioma. MEDICATIONS: This is the 4th day of treatment with cefepime and Zyvox. The patient also is receiving steroids. PHYSICAL EXAMINATION: Vital Signs: Temperature is 97.8 degrees, pulse 85, respirations 20, blood pressure 116/46. General: This is an ill-appearing elderly male. He is in no acute distress but he is requiring high oxygen flow through his mask. Head, eyes, ears, nose, and throat: He can hear my spoken words and see near objects. The patient does not have any white patches on his tongue. Neck: He does not have any pain when he moves his head. Lungs: There were bibasilar rales. Cardiovascular: Heart rate was regular. Abdomen: Soft and nontender. Neurologic: The patient is alert. He can move his extremities. There is no tremor. LAB AND X-RAY: Chest x-ray shows stable left upper and lower lobe infiltrates. Creatinine 0.6. GFR is greater than 60. Liver function studies are normal. Procalcitonin is less than 0.1, IgG is 834, IgA is 365. CBC shows a white count of 19,910, hemoglobin 13.2, and platelet count 766,000. Blood gases show a pH of 7.46, a PO2 of 157 and a pCO2 of 47. ASSESSMENT AND PLAN: I think the patient more likely than not has lung cancer and/or mesothelioma. I plan to continue with his antibiotics and at the first of the week Dr. Rivera is probably going to take the patient to surgery. COMORBIDITIES: He is elderly, he has peripheral vascular disease and arthritis. He may well have lung cancer or mesothelioma. cc: Shahram Li MD
[2018-10-08] MEDS: DULCOLAX PR SCH (23:33)
[2018-10-09 04:02] LABS: ALLEN TEST YES; BLOOD TYPE ARTERIAL; SAMPLE BLOOD
[2018-10-09 04:14] LABS: BE 8.1 mmoll (-3.0-3.0); HCO3-(ACT) 31.2 mmoll (20.0-26.0); O2(CT) 19.8 mL/dL (15.0-23.0); O2HB 96.6 % (95.0-99.0); PO2(98.6) 108 mmHg (60-100); THB 14.5 g/dL (11.5-17.4); pH(98.6) 7.42 (7.35-7.45)
[2018-10-09 04:16] LABS: MODALITY VENTIMASK; PCO2(98.6) 53 mmHg (35-45)
[2018-10-09] MEDS: DUONEB (A & A) INH SCH ×6 (04:17→23:24)
[2018-10-09] MEDS: MAXIPIME 2 GM in NS 100 ML IV SCH ×2 (05:42→18:05)
[2018-10-09] MEDS: PROTONIX PO SCH (06:44)
[2018-10-09 07:41] LABS: BASO% 0.1 % (0.0-0.8); EOS% 0.1 % (0.0-10.0); LYMPH% 6.2 % (20.5-51.1); MCH 28.7 PG (27-31); MCHC 31.6 g/dL (33-37); MCV 90.9 FL (81-99); MONO% 8.7 % (1.7-9.3); MPV 9.1 FL (7.4-10.4); NEUT% 83.4 % (42.2-75.2); PLT 650 X1000 (130-400); RBC 4.18 XMIL (4.7-6.1); RDW 14.2 % (11.5-14.5); WBC 17.98 X1000 (4.8-10.8)
[2018-10-09 07:42] LABS: BASO# 0.02 X1000 (0.0-0.2); EOS# 0.01 X1000 (0.0-0.7); IMM GRAN# 0.27 X1000 (0.0-0.04); IMM GRAN% 1.5 % (0.0-0.5); LYMPH# 1.12 X1000 (1.2-3.4); MONO# 1.57 X1000 (0.11-0.59); NEUT# 14.99 X1000 (1.4-6.5)
--- NOTE | 2018-10-09 07:44 | Diag Imaging Result Doc PS360 ---
CHEST-1 VIEW - 10/09/2018 INDICATION: SOB COMPARISON: 10/08/2018 FINDINGS: Stable opacification of the left lung base with some adjacent infiltrate. The right lung remains clear. Heart size are means top normal. No pneumothorax. IMPRESSION: No change from prior. Electronically signed by Beck Blake 10/09/2018 7:42 AM
[2018-10-09 07:58] LABS: AGAP 7; BUN 26 mg/dL (8-22); CALCIUM 8.2 mg/dL (8.8-10.2); CHLORIDE 92 mmol/L (98-107); COSMO 265; CREATININE 0.6 mg/dL (0.7-1.2); ESTIMATED GFR > 60; GLUCOSE 113 mg/dL (70-104); SODIUM 129 mmol/L (136-145); TCO2 30 mmol/L (25-35)
[2018-10-09] MEDS: MUCOMYST 20% INH SCH ×2 (08:04→19:39)
[2018-10-09] MEDS: PULMICORT INH SCH ×2 (08:05→19:39)
[2018-10-09] MEDS ORDERED: SAMSCA PO ONE (08:18)
[2018-10-09] MEDS: LACTULOSE PO SCH ×2 (08:57→20:08)
[2018-10-09] MEDS: ASPIRIN PO SCH (08:58)
[2018-10-09] MEDS: SOLU-MEDROL IV SCH ×3 (08:58→20:08)
[2018-10-09] MEDS: ZYVOX PO SCH ×2 (08:58→20:08)
[2018-10-09] MEDS: PROSCAR PO SCH (08:58)
[2018-10-09] MEDS: LOVENOX SUBQ SCH (08:59)
[2018-10-09] MEDS: COLACE PO SCH ×2 (08:59→20:09)
[2018-10-09] MEDS: MIRALAX PO SCH ×2 (09:05→23:03)
--- NOTE | 2018-10-09 15:44 | GENERAL SURGERY PROGRESS NOTE ---
DATE: 10/09/2018 SUBJECTIVE: Mr. Cutler feels better today. He does not have his oxygen mask on. His white count is about 18,000. PO2 is 108 on 40% Ventimask. Reviewed his chest x-ray and his PET scan. PLAN: In view of his improvement, I will look at scheduling him either Wednesday or Wednesday for a thoracoscopy and biopsy of the pleura. cc: Ramirez Rivera MD
--- NOTE | 2018-10-09 16:35 | PULMONOLOGY PROGRESS NOTE ---
DATE: 10/09/2018 SUBJECTIVE: The patient is awake, alert, and conversant. He is without new complaints. OBJECTIVE: Vital Signs: Blood pressure 120/53, heart rate 82, respiratory rate 16, oxygen saturation 98% on 40% FiO2. HEENT: Pupils are equal and reactive. Oropharynx appears clear. Neck: Supple. Chest: Reveals decreased breath sounds left base. Cardiac: S1, S2. Abdomen: Soft. Extremities: Without edema. LABORATORIES: Chest x-ray is unchanged. White blood count 17.98 thousand, hemoglobin 12.0, platelet count 650,000. Arterial blood gas on 40% FiO2, pH 7.42, pCO2 of 53, PO2 of 108. Sodium 129, potassium 5.0, chloride 92, bicarb 26, creatinine 0.6. IMPRESSIONS: A 77-year-old with: 1. Hypoxemic respiratory failure. 2. Component of pulmonary fibrosis. 3. History of asbestos exposure, which appears to be quite limited. 4. History of tobacco use. 5. Abnormal PET scan with marked metabolic activity in the periphery, thickening of the lung. This is much more prominent in the left lung than the right lung. PLAN: 1. Continue oxygen and wean as tolerated. 2. Serum protein electrophoresis is pending to rule out amyloidosis. 3. Anticipate thoracoscopy per Dr. Rivera after the case was discussed with him. cc: Fadi Miles MD
--- NOTE | 2018-10-09 17:41 | HEMO/ONC PROGRESS NOTE ---
DATE: 10/09/2018 SUBJECTIVE: Patient reports that his breathing is reasonably well. He is not struggling for breath. His shortness of breath has slowly improve however he is still requiring mask ventilation. OBJECTIVE: Vital signs: Temperature 98.1 degrees, pulse 82, blood pressure 120/53. HEENT: Anicteric. Mucous membranes are moist. Cardiac: Regular rate and rhythm. Normal S1, S2. Chest: Clear with occasional basal crackles bilaterally. Abdomen: Soft, nontender, without hepatosplenomegaly, masses. Extremities: No cyanosis, clubbing or edema. LABS: White count 17.9, hemoglobin 12, platelets 650,000, ANC 14.9. BUN 26, creatinine 0.6. ASSESSMENT AND PLAN: 1. Acute hypoxemic respiratory failure. 2. Acute hypercapnic respiratory failure. 3. Lung consolidation with pleural/parenchymal disease concerning for malignancy. 4. Pneumonia. PLAN: His respiratory status has improved during this hospitalization. Appreciate Dr. Miles's input. Findings and recommendations noted. Await Dr. Rivera for biopsy as soon as possible. Continue current management. cc: Harry Yanez MD [facility]
--- NOTE | 2018-10-09 18:04 | PROGRESS NOTE ---
DATE: 10/09/2018 SUBJECTIVE: The patient is sitting up in bed. He states that he feels a little bit better. He finally got some sleep last night. OBJECTIVE: Vital Signs: Temperature 98.9 degrees, blood pressure 134/59, heart rate 88, respirations 18, O2 saturation is 98% on the Venturi mask. General: This is a chronically ill- appearing, elderly male lying in bed, in no acute distress. Heart: S1, S2 normal. Regular rate and rhythm. Lungs: Equal air entry bilaterally. No crackles. No wheezing. No rales. Abdomen: Positive bowel sounds. Soft, nontender, nondistended. Extremities: No edema. No cyanosis. Neurologic: The patient is alert and oriented x4. LABS: White blood cell count 17, hemoglobin 12, hematocrit 38, platelets 650,000. Sodium 129, potassium 5, chloride 92, CO2 30, BUN 26, creatinine 0.6, glucose 113. ASSESSMENT AND PLAN: 1. Acute on chronic hypoxemic and hypercapnic respiratory failure. Continue oxygen therapy. 2. Pneumonia. The patient is on antibiotic therapy. 3. Lung cancer versus mesothelioma. We will await the timing of the biopsy. 4. Insomnia. Continue on trazodone. 5. Leukocytosis. Unchanged. However, the patient is on steroid therapy. 6. Restless legs syndrome. Continue on Requip. 7. Anxiety disorder. Continue on Xanax. 8. Hyponatremia. Will give the patient another dose of Samsca today. 9. Chronic obstructive pulmonary disease. Continue with bronchodilator therapy. 10. Deep vein thrombosis prophylaxis. The patient is on Lovenox. cc: MD ELISHA Santana
[2018-10-09] MEDS: DESYREL PO SCH (20:08)
[2018-10-09] MEDS: REQUIP PO SCH (20:08)
[2018-10-09] MEDS: CRESTOR PO SCH (20:08)
[2018-10-09] MEDS: MELATONIN PO SCH (20:08)
[2018-10-09] MEDS: XANAX PO PRN (20:12)
[2018-10-09] MEDS: DULCOLAX PR SCH (23:03)
[2018-10-10] MEDS: DUONEB (A & A) INH SCH ×6 (03:46→22:46)
[2018-10-10 03:48] LABS: ALLEN TEST YES; BLOOD TYPE ARTERIAL; HCO3-(ACT) 30.3 mmoll (20.0-26.0); METHB 1.2 % (0.0-1.5); O2(CT) 17.2 mL/dL (15.0-23.0); O2HB 94.7 % (95.0-99.0); PO2(98.6) 80 mmHg (60-100); SAMPLE BLOOD; SAO2 97.4 % (95.0-100.0); THB 12.9 g/dL (11.5-17.4)
[2018-10-10 03:51] LABS: MODALITY CANNULA; PCO2(98.6) 54 mmHg (35-45)
--- NOTE | 2018-10-10 04:57 | HEMO/ONC PROGRESS NOTE ---
DATE: 10/07/2018 SUBJECTIVE: The patient is standing up at the side of the bed, getting dressed this morning. He states that he feels better today. He continues to improve according to him. The family states that the surgeon told him it will possibly be Wednesday when they attempt to do the thoracotomy. OBJECTIVE: Vital Signs: Temperature 97.8 degrees, pulse rate 83, respiratory rate 22, blood pressure 133/61, 93% on 15 L Venturi mask, 0/10 pain. General: The patient is an elderly, ill- appearing male in no acute distress, wearing a Venturi mask. Respiratory: Diminished breath sounds in the right lung bases and crackles throughout. Cardiovascular: S1, S2 noted. Regular rate and rhythm. Abdomen: Soft, nontender, nondistended. Neurological: Awake, alert, and oriented x3. No focal motor deficits. Extremities: No edema noted. Patient to get up and out of bed at will. LABORATORY DATA: Sodium 129, creatinine 0.6, BNP 438. IMAGING: Abdominal x-ray shows left pneumonia with a small left effusion similar to the prior study and constipation. ASSESSMENT: 1. Acute hypoxemic respiratory failure. 2. Acute hypercapnic respiratory failure. 3. Pneumonia. 4. Bilateral pleural effusions. 5. 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 PLAN: We are hoping that the surgeon will be able to do a thoracoscopy with biopsy of his left lung in the pleural base next week. We know that Dr. Rievra is continuing to follow him for the most appropriate time to do that surgery. He continues to improve. He is doing well on the antibiotics and with diuresis. Again, from our standpoint, the patient should continue protein shakes, getting out of bed and continue all current management. Dictated by ELY Randhawa for Harry Yanez MD cc: Harry Yanez MD [facility]
[2018-10-10] MEDS: MAXIPIME 2 GM in NS 100 ML IV SCH ×2 (05:28→18:15)
[2018-10-10] MEDS: PROTONIX PO SCH (06:16)
--- NOTE | 2018-10-10 06:56 | Diag Imaging Result Doc PS360 ---
CHEST-1 VIEW - 10/10/2018 INDICATION: SOB COMPARISON: 10/09/2018 FINDINGS: Stable consolidation and/or effusion at the left lung base. Stable infiltrate throughout the left central and lower lung. The right lung remains clear. Heart size appears grossly normal. IMPRESSION: No change from prior. Electronically signed by Beck Blake 10/10/2018 6:54 AM
[2018-10-10 07:55] LABS: AGAP 6; BUN 30 mg/dL (8-22); CALCIUM 8.4 mg/dL (8.8-10.2); CHLORIDE 99 mmol/L (98-107); COSMO 278; CREATININE 0.7 mg/dL (0.7-1.2); ESTIMATED GFR > 60; GLUCOSE 90 mg/dL (70-104); POTASSIUM 4.4 mmol/L (3.5-5.1); SODIUM 136 mmol/L (136-145); TCO2 31 mmol/L (25-35)
[2018-10-10] MEDS: MUCOMYST 20% INH SCH ×2 (08:28→19:40)
[2018-10-10] MEDS: PULMICORT INH SCH ×2 (08:29→19:40)
[2018-10-10] MEDS ORDERED: FENTANYL ONE (10:28)
[2018-10-10] MEDS ORDERED: ZOFRAN ONE (10:28)
[2018-10-10] MEDS ORDERED: DECADRON ONE (10:28)
[2018-10-10] MEDS ORDERED: XYLOCAINE-MPF 2% ONE (10:28)
[2018-10-10] MEDS ORDERED: ROBINUL ONE ×2 (10:28→12:32)
[2018-10-10] MEDS ORDERED: DIPRIVAN 1% ONE (10:29)
[2018-10-10] MEDS ORDERED: LR 1,000 ML ONE (11:21)
[2018-10-10] MEDS ORDERED: SENSORCAINE-MPF 0.5%/EPI 1:200,000 ONE (11:21)
--- NOTE | 2018-10-10 12:23 | PROGRESS NOTE ---
DATE: 10/10/2018 SUBJECTIVE: No acute events noted overnight. OBJECTIVE: Vital Signs: Temperature 98.4, blood pressure 140/59, heart rate 71, respirations 18, O2 sats 97% on 5 L nasal cannula. Intake 200, output 2 L. General: This is a chronically ill- appearing elderly male lying in bed in no acute distress. Heart: S1, S2 normal. Regular rate and rhythm. Lungs: Equal air entry bilaterally. No wheezing. No rales. No rhonchi. Abdomen: Positive bowel sounds. Soft, nontender, nondistended. Extremities: No edema, no cyanosis. No calf tenderness. Neurologic: The patient is alert and oriented x 4. LABS: Sodium 136, potassium 4.4, chloride 99, CO2 31, BUN 30, creatinine 0.7, glucose 90, calcium 8.4. Chest x-ray shows stable infiltrates throughout the left central and lower lung. ASSESSMENT AND PLAN: 1. Acute hypoxemic respiratory failure. Aware. 2. Pneumonia. Continue with antibiotic therapy. 3. Lung cancer versus mesothelioma. The patient is scheduled to undergo thorascopy with biopsy today. 4. Restless legs syndrome. Continue on Requip. 5. Anxiety disorder. Continue on Xanax. 6. COPD. Continue with supplemental oxygen and bronchodilator therapy. 7. DVT prophylaxis. The patient is currently on Lovenox. cc: Melissa Evans MD MTDD
[2018-10-10] MEDS ORDERED: NEOSTIGMINE ONE (12:33)
[2018-10-10] MEDS ORDERED: DUONEB (A & A) INH ONE (13:01)
[2018-10-10 13:04] LABS: URINE SOURCE CATH
[2018-10-10 13:12] LABS: BILIRUBIN URINE NEGATIVE (NEGATIVE); BLOOD URINE NEGATIVE (NEGATIVE); COLOR YELLOW; GLUCOSE URINE NEGATIVE (NEGATIVE); KETONE URINE NEGATIVE (NEGATIVE); LEUKOCYTES URINE NEGATIVE (NEGATIVE); NITRITE URINE NEGATIVE (NEGATIVE); PH URINE 6.5; PROTEIN URINE TRACE mg/dL (NEGATIVE); TURBIDITY URINE CLEAR (CLEAR); UROBILINOGEN URINE NORMAL (NORMAL)
[2018-10-10 13:13] LABS: UR EPITHELIAL CELLS <10 /HPF (<10); URINE BACTERIA NEGATIVE /HPF; URINE RBC <10 /HPF (<10); URINE WBC <10 /HPF (<10)
[2018-10-10] MEDS: DILAUDID ONE ×2 (13:15→13:18)
--- NOTE | 2018-10-10 13:17 | OPERATIVE NOTE ---
PROCEDURE DATE: 10/10/2018 PROCEDURES: Left thoracoscopy with biopsy of the pleura. SURGEON: Ramirez Rivera MD. NAVAL DESIGNER: ROBERT Bennett. PREOPERATIVE DIAGNOSIS: Left lower lobe pneumonia. 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 POSTOPERATIVE DIAGNOSIS: Left lower lobe pneumonia. 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 DESCRIPTION OF OPERATION: Satisfactory general endotracheal anesthesia was achieved. A double- lumen tube was placed eliminating the left side. After documentation of appropriate positioning, we then turned the patient onto his side with the left side up. We secured him in position there. The left bronchial tube was clamped. The left chest was prepped and draped in a sterile fashion. We chose a spot in the mid axillary line below the level of the scapular tip. We anesthetized the skin, incised the skin, and carried our incision down to the top of the rib and then poked through into the pleural space. We introduced an 11 Thoracoport. We then introduced the scope. We encountered some whitish exudate along the course of the pleura. We could see the pericardial sac medially and what appeared to be the diaphragm or lower lobe to the left or inferiorly and whitish rind along the course of the lung edge. We then went more anterior and one space below and introduced another Thoracoport in a similar fashion. We were then able to position the scope and the more anterior Thoracoport looking posteriorly, and we obtained biopsies from the pleural edge, primarily probably the visceral pleura. We were able to then position the scope anteriorly and pass a probe through the posterior Thoracoport, oriented it caudad and did somewhat of a separation of either the diaphragm or the lower lobe from the posterior chest wall. Again, more pleural biopsies were obtained. Minor bleeding occurred. We were able to penetrate more cephalad in the pleural space and again it was pretty sucked in, preventing open access to the upper pleural space. After multiple biopsies were taken, we then placed a 32 chest tube in the more posterior hole, orienting it cephalad and securing it at the skin level with 0 silk. We then removed the scope and the other Thoracoport and closed it with a 3-0 Polysorb in the subcutaneous tissue and the skin was closed with 4-0 Polysorb subcuticular stitch. Sterile dressings were applied. He was then sent to the recovery room in stable condition. cc: Ramirez Rivera MD
--- NOTE | 2018-10-10 13:17 | Diag Imaging Result Doc PS360 ---
EXAM: CHEST-PORTABLE HISTORY: chest tube placement TECHNIQUE: Chest single view COMPARISON: 5:42 AM FINDINGS: Interval placement of a left-sided chest tube. Interval decrease in size of the left effusion. There are infiltrates in the mid and lower left lung which remain. IMPRESSION: Mild interval improvement Electronically signed by Van Escobedo 10/10/2018 1:14 PM
[2018-10-10] MEDS ORDERED: DUONEB (A & A) ONE (13:19)
--- NOTE | 2018-10-10 13:32 | HEMO/ONC PROGRESS NOTE ---
DATE: 10/10/2018 SUBJECTIVE: The patient is comfortable in bed this morning. He is still continuing to sleep. He does not appear with shortness of breath. He only has a nasal cannula on this morning. Family tells me that he will be going to surgery at 11 a.m. OBJECTIVE: Vital Signs: Temperature is 98.4 degrees, pulse rate 71, respiratory rate 14, O2 saturation 97% on 2 L via nasal cannula. He is in 0/10 pain. HEENT: Anicteric. Mucous membranes are moist. Cardiac: S1, S2 noted. Regular rate and rhythm. Respiratory: Lungs are mostly clear with occasional basal crackles bilaterally. Abdomen: Soft, nontender, nondistended. Extremities: No edema. LABORATORY DATA: No CBC today. Creatinine 0.7, calcium 8.4, sodium 136, potassium 4.4. Chest x- ray shows stable consolidation or effusion at the left lung base. Stable infiltrate throughout the left central and lower lung. Right lung remains clear. This is not changed from a prior x- ray. ASSESSMENT: 1. Acute hypoxemic respiratory failure. 2. Acute hypercapnic respiratory failure. 3. Lung consolidation with pleural/parenchymal disease concerning for malignancy. 4. Pneumonia. PLAN: His respiratory status has improved significantly during hospitalization. We appreciate Dr. Miles's input. All findings and recommendations have been noted. We will continue to monitor for biopsy results status post biopsy per Dr. Rivera. Continue current management. Dictated by ELY Randhawa for Harry Yanez MD Patient seen and examined. As above. Patient going in for thoracoscopy and biopsy today. Await results. Harry Yanez M.D. cc: Harry Yanez MD [facility]
[2018-10-10] MEDS: SOLU-MEDROL IV SCH ×3 (14:22→22:29)
[2018-10-10] MEDS: LOVENOX SUBQ SCH (14:24)
[2018-10-10] MEDS: MIRALAX PO SCH ×2 (14:24→22:32)
[2018-10-10] MEDS: ZYVOX PO SCH ×2 (14:24→22:28)
[2018-10-10] MEDS: PROSCAR PO SCH (14:24)
[2018-10-10] MEDS: COLACE PO SCH ×2 (14:24→22:28)
[2018-10-10] MEDS: LACTULOSE PO SCH ×3 (14:25→22:32)
[2018-10-10] MEDS: ASPIRIN PO SCH (14:25)
[2018-10-10] MEDS: NORCO-7.5 PO PRN ×3 (15:02→23:03)
--- NOTE | 2018-10-10 18:28 | INFECTIOUS DISEASE PROGRESS NO ---
DATE: 10/10/2018 PRESENT ILLNESS: The patient is status post left-sided fluoroscopy with pleural biopsies. Dr. Rivera for diagnosis put left lower lobe pneumonia with possible mesothelioma. MEDICATIONS: This is the 7th day of treatment with the combination of cefepime and Zyvox. The patient also is on steroids. PHYSICAL EXAMINATION: Vital Signs: Temperature is 97.8 degrees, pulse 62, respirations 22, blood pressure 128/47. General: This is an ill-appearing elderly male. He is in no acute distress. Head/eyes/ears/nose/throat: He can hear my spoken words and see near objects. He is beginning to get white coating of his tongue. Neck: He does not have any pain when he moves his head. Lungs: Clear on the right side. The left side has some rales and rhonchi. Thorax: Patient has a chest tube in the left chest. There is a sanguinous fluid coming from the chest tube. Abdomen: Soft and nontender. Neurologic: The patient is alert. He can move his extremities. He does not have a tremor. LAB AND X-RAY: The patient's CBC for today showed a white count of 17,980, hemoglobin 12 and platelet count 650,000. Blood gases show a pH of 7.4, PO2 of 80 and a pCO2 of 54. Creatinine 0.7. GFR is greater than 60. IgG and IgA are normal. Urinalysis is negative for white cells and bacteria. Dr. Rivera said that at thoracoscopy there was a white rind around the lung, which may be a mesothelioma. ASSESSMENT AND PLAN: For now I am going to continue with the patient's antibiotics pending the results of the biopsies the patient took of the presumed mesothelial. I have also ordered that a sample of the fluid coming from the chest tube site be sent for a routine culture. COMORBIDITIES: The patient is elderly. He has peripheral vascular disease and arthritis. He also has a good chance of having a mesothelioma. cc: Shahram Li MD
[2018-10-10] MEDS: REQUIP PO SCH (22:28)
[2018-10-10] MEDS: CRESTOR PO SCH (22:28)
[2018-10-10] MEDS: DESYREL PO SCH (22:28)
[2018-10-10] MEDS: XANAX PO PRN (22:28)
[2018-10-10] MEDS: MELATONIN PO SCH (22:28)
[2018-10-10] MEDS: MYCOSTATIN SUSP PO SCH (22:29)
[2018-10-10] MEDS: DULCOLAX PR SCH (22:32)
[2018-10-11] MEDS: SOLU-MEDROL IV SCH ×3 (00:14→15:57)
[2018-10-11] MEDS: NORCO-7.5 PO PRN ×4 (03:23→20:52)
[2018-10-11] MEDS: DUONEB (A & A) INH SCH ×6 (03:58→22:45)
[2018-10-11 05:12] LABS: ALLEN TEST YES; BE 5.2 mmoll (-3.0-3.0); BLOOD TYPE ARTERIAL; HCO3-(ACT) 28.9 mmoll (20.0-26.0); METHB 1.1 % (0.0-1.5); O2(CT) 15.4 mL/dL (15.0-23.0); O2HB 94.1 % (95.0-99.0); PCO2(98.6) 47 mmHg (35-45); PO2(98.6) 73 mmHg (60-100); SAMPLE BLOOD; SAO2 97.2 % (95.0-100.0); THB 11.6 g/dL (11.5-17.4); pH(98.6) 7.42 (7.35-7.45)
[2018-10-11 05:13] LABS: MODALITY CANNULA
[2018-10-11] MEDS: MAXIPIME 2 GM in NS 100 ML IV SCH ×2 (06:04→20:52)
[2018-10-11] MEDS: PROTONIX PO SCH (06:04)
[2018-10-11] MEDS ORDERED: NORCO-7.5 PO PRN (06:08)
--- NOTE | 2018-10-11 06:46 | Diag Imaging Result Doc PS360 ---
EXAM: CHEST-1 VIEW HISTORY: SOB TECHNIQUE: Chest single view COMPARISON: 10/10/2018 FINDINGS: Poor inspiratory effort. No change in the left-sided chest tube. No pneumothorax identified. There are infiltrates and atelectasis in the lower left lung. Heart is enlarged. Mild vascular distention. IMPRESSION: No significant interval change. Electronically signed by Van Escobedo 10/11/2018 6:43 AM
[2018-10-11 07:29] LABS: BASO# 0.01 X1000 (0.0-0.2); BASO% 0.1 % (0.0-0.8); EOS# 0.01 X1000 (0.0-0.7); EOS% 0.1 % (0.0-10.0); HEMATOCRIT 35.8 % (42.0-52.0); HEMOGLOBIN 11.3 g/dL (14.0-18.0); LYMPH# 0.89 X1000 (1.2-3.4); LYMPH% 4.9 % (20.5-51.1); MCH 29.6 PG (27-31); MCHC 31.6 g/dL (33-37); MCV 93.7 FL (81-99); MONO# 1.39 X1000 (0.11-0.59); MONO% 7.7 % (1.7-9.3); MPV 9.2 FL (7.4-10.4); NEUT# 15.84 X1000 (1.4-6.5); NEUT% 87.2 % (42.2-75.2); PLT 558 X1000 (130-400); RBC 3.82 XMIL (4.7-6.1); RDW 14.5 % (11.5-14.5); WBC 18.14 X1000 (4.8-10.8)
[2018-10-11 07:33] LABS: AGAP 7; BUN 28 mg/dL (8-22); CALCIUM 7.9 mg/dL (8.8-10.2); CHLORIDE 96 mmol/L (98-107); COSMO 269; CREATININE 0.6 mg/dL (0.7-1.2); ESTIMATED GFR > 60; GLUCOSE 117 mg/dL (70-104); POTASSIUM 4.4 mmol/L (3.5-5.1); SODIUM 131 mmol/L (136-145); TCO2 28 mmol/L (25-35)
[2018-10-11 07:39] LABS: LYMPHS 2 % (21-51); MONO 2 % (1-9); SEGS 92 % (42-75)
[2018-10-11] MEDS: MUCOMYST 20% INH SCH ×2 (07:41→19:15)
[2018-10-11] MEDS: PULMICORT INH SCH ×2 (07:41→19:15)
--- NOTE | 2018-10-11 08:10 | INFECTIOUS DISEASE PROGRESS NO ---
DATE: 10/11/2018 The patient is beginning to develop oral candidiasis manifested by a white coating on his tongue. I have placed the patient on nystatin 5 mL swish and swallow q.i.d. cc: Shahram Li MD
[2018-10-11] MEDS: COLACE PO SCH ×2 (08:25→20:51)
[2018-10-11] MEDS: MIRALAX PO SCH ×2 (08:26→20:53)
[2018-10-11] MEDS: PROSCAR PO SCH (08:30)
[2018-10-11] MEDS: MYCOSTATIN SUSP PO SCH ×4 (08:30→20:51)
[2018-10-11] MEDS: ZYVOX PO SCH ×2 (08:30→20:52)
[2018-10-11] MEDS: ASPIRIN PO SCH (08:30)
[2018-10-11] MEDS: LOVENOX SUBQ SCH (08:30)
[2018-10-11] MEDS: LACTULOSE PO SCH ×2 (08:31→20:53)
[2018-10-11] MEDS: XANAX PO PRN ×2 (09:56→21:07)
--- NOTE | 2018-10-11 10:18 | HEMO/ONC PROGRESS NOTE ---
DATE: 10/11/2018 SUBJECTIVE: Mr. Cutler is sitting up in bed. He appears comfortable, although he says his chest tube is hurting him a little. He states that he is getting pain medication, but it seems to be wearing off quickly before he is due another dose. He did have a successful surgery yesterday. He is wearing only a nasal cannula. Family at bedside. OBJECTIVE: Vital Signs: Temperature 97.7 degrees, heart rate 70, respiratory rate 24, blood pressure 128/66. He is 100% on 2 L via nasal cannula. He is in 10/10 pain to his left chest wall. General: Ill-appearing elderly male in no acute distress. Respiratory: Upper lobes are clear to auscultation. Normal respiratory effort. No use of accessory muscles. Cardiovascular: S1, S2 noted. Regular rate and rhythm. Abdomen: Soft, nontender, nondistended. Extremities: No edema. LABORATORIES/RADIOLOGY: White blood cells 18.14, hemoglobin 11.3, hematocrit 35.8, platelet count 558,000. Sodium 131, creatinine 0.6. Chest x-ray from this morning shows poor inspiratory effort. No change in the left-sided chest tube. No pneumothorax. Infiltrate and atelectasis in the lower left lung. ASSESSMENT: 1. Acute hypoxemic respiratory failure. 2. Acute hypercapnic respiratory failure. 3. Pneumonia. 4. Lung cancer versus mesothelioma. 5. Chronic obstructive pulmonary disease. 6. Deep venous thrombosis prophylaxis. PLAN: The patient is requesting a change in pain medication as what he is currently receiving is not lasting for him. It appears his chest tube is in place and draining appropriately. However, it is causing him some pain. We will continue to follow for biopsy results. The patient needs to continue protein shakes. Continue current management. Dictated by ELY Randhawa for Harry Yanez MD Patient seen and examined. As above. Patient is status post thoracoscopy. Findings noted. Miguel believes findings may be due to infectious/inflammatory disorder. Biopsies have been obtained. Follow-up on pathology. Continue current management. Discharged home when possible. Harry Yanez M.D. cc: Harry Yanez MD [facility]
--- NOTE | 2018-10-11 13:35 | GENERAL SURGERY PROGRESS NOTE ---
DATE: 10/11/2018 Mr. Cutler is afebrile. Hemodynamics were satisfactory. White count remains elevated at 18,000. Chest tube has pulled out about 200 mL. There is no air leak present. His chest x-ray continues to show the density in the left inferior pleural space. The plan will be to remove his chest tube tomorrow if there is no significant other drainage. Pathology is pending. cc: Ramirez Rivera MD
--- NOTE | 2018-10-11 15:29 | INFECTIOUS DISEASE PROGRESS NO ---
DATE: 10/11/2018 PRESENT ILLNESS: Mr. Cutler is status post left thoracoscopy with chest tube insertion and pleural biopsy, yesterday by Dr. Rivera. There is a left lower lobe pneumonia with a possible mesothelioma. The patient also has an oral candidiasis. MEDICATIONS: He is receiving cefepime 2 g IV every 12 hours and Zyvox 600 mg by mouth every 12 hours. He has also been started on nystatin swish and swallow 4 times a day for his oral candidiasis. He is also receiving IV steroids. PHYSICAL EXAMINATION: Vital Signs: Temperature is 97.7 degrees, pulse rate 70, respiratory rate 24, blood pressure 128/60, O2 saturation is 100% on 3 L nasal cannula. General: This is a an elderly, acutely ill-appearing gentleman. He is sitting up in bed currently in no acute distress. HEENT: Atraumatic, normocephalic. Oral mucous membranes are erythematous with a mild white coating. Conjunctiva are pale. Neck: Supple. Trachea is midline. Cardiovascular: Heart rate and rhythm are regular. Normal sinus rhythm on the monitor. Respiratory: Lung sounds are diminished bilaterally with coarse rales noted on the left side. No work of breathing is noted. Abdomen: Soft, round and nontender. Bowel sounds are active. Integumentary: Skin is warm and dry with a dressing in place to the left-sided chest tube which is dry and intact with bloody drainage noted in the tubing and [facility]. Neurologic: He is awake, alert and oriented. Able to move all extremities independently in the bed. LABORATORY AND X-RAY: Today his white count is 18.14, hemoglobin 11.3, platelet count 558,000, this morning on 2 L nasal cannula his pH is 7.42, pCO2 47, PO2 73, HCO3 28.9, creatinine 0.6, estimated GFR is greater than 60. Urinalysis done yesterday afternoon was negative for bacteria and less than 10 WBCs. Chest x-ray this morning showed no interval change with infiltrates and atelectasis in the lower left lung. ASSESSMENT AND PLAN: Mr. Cutler has been on cefepime and Zyvox which we will continue at this time, for the left lower lobe pneumonia. He has had a pleural fluid sent to the lab, and the preliminary culture shows no growth at this point. We will wait for those final cultures. The Gram stain also showed no bacteria or yeast and 2+ white blood cells. The biopsy is also pending, and is expected to show a mesothelioma. These plans have been discussed with and recommended by Dr. Li. COMORBIDITIES: Include that he is elderly with arthritis and peripheral vascular disease. Dictated by ELY Chow for Shahram Li MD cc: Shahram Li MD [facility]
--- NOTE | 2018-10-11 17:43 | PROGRESS NOTE ---
DATE: 10/11/2018 He is followed by Dr. Low Osorio, presented on 09/30/2018. SUBJECTIVE: A 77-year-old male with past medical history of CVA back in 2007 requiring left carotid endarterectomy, hypertension, hyperlipidemia, prostate cancer in the past with radiation seeds, depression, and arthritis. He states over the last couple weeks, 2 to 3 weeks, he has been coughing more, a greenish-yellow phlegm. Denied having any fever but was extremely short of breath. He had an elevated white count. Chest x-ray showed pneumonia bilaterally, was started on antibiotics, and was admitted to the hospital. Dr. Yanez has been following along. Apparently, he had a PET scan and has scheduled him for biopsy. He reports that he is feeling a little better at the present time. He is status post left thoracoscopy with a chest tube in place by Dr. Rivera. Has a left lower lobe pneumonia, possible mesothelioma. ASSESSMENT AND PLAN: 1. The patient treated for oral candidiasis. He is on cefepime 2 g IV q.12 h., Zyvox 600 mg by mouth every 12 hours, and nystatin swish and swallow 4 times a day for his oral candidiasis. He is also receiving IV steroids. 2. Hemodynamics satisfactory. Chest tube still putting out about 200 mL. No air leak so probably chest tube removed tomorrow. 3. Treating him for pneumonia. 4. Hypoxemic respiratory failure and hypercapnic respiratory failure, improved. 5. Chronic obstructive pulmonary disease with exacerbation. 6. Continue deep venous thrombosis prophylaxis. REVIEW OF ORDERS: I do not see any change. cc: Salvador Seymour MD
[2018-10-11] MEDS: CRESTOR PO SCH (20:51)
[2018-10-11] MEDS: REQUIP PO SCH (20:51)
[2018-10-11] MEDS: DESYREL PO SCH (20:52)
[2018-10-11] MEDS: MELATONIN PO SCH (20:52)
[2018-10-11] MEDS: DULCOLAX PR SCH (20:53)
[2018-10-12] MEDS: NORCO-7.5 PO PRN ×6 (00:53→21:42)
[2018-10-12] MEDS: DUONEB (A & A) INH SCH ×6 (03:33→23:09)
[2018-10-12 04:58] LABS: ALLEN TEST YES; BE 5.8 mmoll (-3.0-3.0); BLOOD TYPE ARTERIAL; HCO3-(ACT) 29.4 mmoll (20.0-26.0); METHB 0.8 % (0.0-1.5); O2(CT) 14.1 mL/dL (15.0-23.0); O2HB 96.1 % (95.0-99.0); PO2(98.6) 105 mmHg (60-100); SAMPLE BLOOD; SAO2 98.3 % (95.0-100.0); THB 10.3 g/dL (11.5-17.4)
[2018-10-12 05:02] LABS: MODALITY CANNULA; PCO2(98.6) 51 mmHg (35-45)
[2018-10-12] MEDS: MAXIPIME 2 GM in NS 100 ML IV SCH ×2 (05:05→17:44)
[2018-10-12] MEDS: PROTONIX PO SCH (06:02)
[2018-10-12] MEDS: MUCOMYST 20% INH SCH ×2 (07:46→19:38)
[2018-10-12] MEDS: PULMICORT INH SCH ×2 (07:47→19:38)
[2018-10-12] MEDS: ASPIRIN PO SCH (09:22)
[2018-10-12] MEDS: PROSCAR PO SCH (09:22)
[2018-10-12] MEDS: ZYVOX PO SCH ×2 (09:22→21:45)
[2018-10-12] MEDS: LACTULOSE PO SCH ×2 (09:22→22:07)
[2018-10-12] MEDS: LOVENOX SUBQ SCH (09:22)
[2018-10-12] MEDS: MYCOSTATIN SUSP PO SCH ×4 (09:22→21:46)
[2018-10-12] MEDS: COLACE PO SCH ×2 (09:22→21:46)
[2018-10-12] MEDS: SOLU-MEDROL IV SCH ×3 (09:22→17:45)
[2018-10-12] MEDS: MIRALAX PO SCH ×2 (09:23→22:07)
--- NOTE | 2018-10-12 11:39 | GENERAL SURGERY PROGRESS NOTE ---
DATE: 10/12/2018 Mr. Cutler has had really minimal fluid output. He has a small air leak today, though. Therefore, I will not pull his chest tube. His pathology is pending. cc: Ramirez Rivera MD
--- NOTE | 2018-10-12 12:06 | HEMO/ONC PROGRESS NOTE ---
DATE: 10/12/2018 SUBJECTIVE: Mr. Cutler is sitting up in bed. His granddaughters are at bedside, helping him get ready for breakfast. He is only on nasal cannula today, and seems to be doing well. He believes he is strong enough to go home. He states that he believes the chest tube may come out today. He is otherwise feeling well. OBJECTIVE: Vital Signs: Temperature 97.7 degrees, pulse rate 63, respiratory rate 17, blood pressure 135/60, O2 saturation 98% on 3 L nasal cannula. General: He is an elderly male, in no acute distress. Cardiovascular: S1, S2 noted. Regular rate and rhythm. Respiratory: Lungs are clear to auscultation. Normal respiratory effort. Chest tube in place. Abdomen: Soft, nontender, nondistended. Extremities: No edema. IMAGING AND LABORATORY DATA: No labs today. No chest x-ray yet today. ASSESSMENT: 1. Acute hypoxemic and hypercapnic respiratory failure. 2. Pneumonia. 3. Lung cancer versus mesothelioma. 4. Chronic obstructive pulmonary disease with exacerbation. 5. Continue deep venous thrombosis prophylaxis. PLAN: The patient is status post thoracoscopy with chest tube. Dr. Rivera is considering removing the tube today. We continue to await pathology. Continue current management. From our standpoint, the patient is able to be discharged to home when possible. Dictated by ELY Randhawa for Harry Yanez MD Patient seen and examined. He continues to improve in terms of shortness of breath. When chest is removed, he can be discharged and I will follow him up outpatient. Pathology is pending. Harry Yanez M.D. cc: Harry Yanez MD [facility]
--- NOTE | 2018-10-12 13:35 | PROGRESS NOTE ---
DATE: 10/12/2018 SUBJECTIVE: Mr. Cutler is feeling better, breathing better, comfortable. Two of his granddaughters were at the bedside. Eating well. Bowels are moving comfortably. Still has a chest tube in the left side. It looks like we may be able to stop it tomorrow. OBJECTIVE: Vital signs: Temperature 98 degrees, pulse 88, respirations 17, blood pressure 121/53. HEENT: Pupils are equal and round. Lungs: Clear in all lung l[place]. Cardiovascular: Regular rhythm and rate without murmur or S3. Abdomen: Soft. Skin: Warm and dry. Urine output 1900 mL. ASSESSMENT AND PLAN: 1. Acute hypoxemic, hypercapnic respiratory failure which is improved. 2. Pneumonia, which is improving. 3. Lung cancer versus mesothelioma. Chest tube in the left side. 4. Chronic obstructive pulmonary disease with exacerbation. 5. Deep venous thrombosis. The patient is status post thoracoscopy with chest tube. Considering stopping the chest tube tomorrow. REVIEW OF HIS ORDERS: I do not see any change. The patient on Zyvox 600 mg p.o. q.12 hours and cefepime 2 g IV q.12 hours, Lovenox 30 mg subcutaneous q.24 hours, Proscar 5 mg a day, lactulose 30 mL b.i.d., Protonix 40 mg daily, MiraLAX 17 g b.i.d., trazodone 100 mg at bedtime. cc: Salvador Seymour MD
--- NOTE | 2018-10-12 18:21 | INFECTIOUS DISEASE PROGRESS NO ---
DATE: 10/12/2018 PRESENT ILLNESS: Mr. Cutler is being treated for a left lower lobe pneumonia with possible mesothelioma. He is status post left thoracoscopy with chest tube insertion and pleural biopsy done by Dr. Rivera. He is also being treated for oral candidiasis. MEDICATIONS: Today is day 7 of cefepime 2 g IV every 12 hours and Zyvox 600 mg by mouth every 12 hours. He is also receiving IV Solu-Medrol and nystatin swish and swallow 4 times a day. PHYSICAL EXAMINATION: Vital Signs: Temperature is 98, pulse rate 88, respiratory rate 17, blood pressure 121/53, O2 saturation is 98% on 3 L nasal cannula. General: This is a chronically ill- appearing, elderly gentleman. He has currently sitting up in bed, in no acute distress. HEENT: Atraumatic, normocephalic. Oral mucous membranes are slightly erythematous with no white patches noted. Conjunctivae are pink. Neck: Supple. Trachea is midline. Cardiovascular: Heart rate and rhythm are regular. Normal sinus rhythm on the monitor. Respiratory: Lung sounds are diminished bilaterally. No work of breathing is noted. Abdomen: Soft, round, nontender. Bowel sounds are active. Integumentary: There is a clean dry dressing to the left- sided chest tube with a small amount of serosanguineous drainage noted in the tubing and in the [facility]. Skin is warm and dry. Neurologic: He is awake, alert, oriented, and able to move around in the bed independently. LABORATORY AND X-RAY: None today, however, the blood gas done this morning on 2 L nasal cannula showed a pH of 7.4, pCO2 of 51, pO2 of 105, HCO3 29.4. So far, the pleural fluid culture has shown no growth on the preliminary report. ASSESSMENT AND PLAN: Mr. Cutler is being treated for a left lower lobe pneumonia. At this point, we are awaiting pathology as well as the final culture on his pleural fluid. For now, we will continue the cefepime and Zyvox as ordered. The oral candidiasis seems to be improving, so we will continue nystatin swish and swallow as well. There is a leukocytosis, and this may be in part due to the steroid administration. We will order blood work for tomorrow. These plans have been discussed with and recommended by Dr. Li. COMORBIDITIES: For Mr. Halbrooks include that he is elderly with peripheral vascular disease, arthritis and lung cancer versus mesothelioma. Dictated by ELY Chow for Shahram Li MD cc: Shahram Li MD MTDD
[2018-10-12] MEDS: XANAX PO PRN (21:42)
[2018-10-12] MEDS: CRESTOR PO SCH (21:45)
[2018-10-12] MEDS: MELATONIN PO SCH (21:45)
[2018-10-12] MEDS: DESYREL PO SCH (21:46)
[2018-10-12] MEDS: REQUIP PO SCH (22:04)
[2018-10-12] MEDS: DULCOLAX PR SCH (22:07)
[2018-10-13] MEDS: SOLU-MEDROL IV SCH ×3 (00:10→23:12)
[2018-10-13] MEDS: DUONEB (A & A) INH SCH ×6 (03:17→23:29)
[2018-10-13] MEDS: MAXIPIME 2 GM in NS 100 ML IV SCH (05:01)
[2018-10-13] MEDS: NORCO-7.5 PO PRN ×5 (05:01→23:07)
[2018-10-13 05:06] LABS: ALLEN TEST YES; BE 4.9 mmoll (-3.0-3.0); BLOOD TYPE ARTERIAL; HCO3-(ACT) 28.7 mmoll (20.0-26.0); METHB 1.1 % (0.0-1.5); O2(CT) 15.4 mL/dL (15.0-23.0); O2HB 94.6 % (95.0-99.0); PCO2(98.6) 45 mmHg (35-45); PO2(98.6) 74 mmHg (60-100); SAMPLE BLOOD; SAO2 97.2 % (95.0-100.0); THB 11.5 g/dL (11.5-17.4); pH(98.6) 7.43 (7.35-7.45)
[2018-10-13 05:07] LABS: MODALITY CANNULA
[2018-10-13] MEDS: PROTONIX PO SCH (06:50)
[2018-10-13 07:33] LABS: BASO# 0.01 X1000 (0.0-0.2); BASO% 0.1 % (0.0-0.8); HEMOGLOBIN 11.7 g/dL (14.0-18.0); IMM GRAN# 0.18 X1000 (0.0-0.04); IMM GRAN% 1.2 % (0.0-0.5); LYMPH% 5.4 % (20.5-51.1); MCH 29.8 PG (27-31); MCHC 33.4 g/dL (33-37); MCV 89.3 FL (81-99); MONO# 0.85 X1000 (0.11-0.59); MONO% 5.7 % (1.7-9.3); NEUT# 13.01 X1000 (1.4-6.5); NEUT% 87.6 % (42.2-75.2); PLT 525 X1000 (130-400); RBC 3.92 XMIL (4.7-6.1); RDW 14.5 % (11.5-14.5); WBC 14.85 X1000 (4.8-10.8)
[2018-10-13] MEDS: MUCOMYST 20% INH SCH ×2 (07:48→19:20)
[2018-10-13] MEDS: PULMICORT INH SCH ×2 (07:48→19:20)
[2018-10-13 08:04] LABS: AGAP 10; BUN 23 mg/dL (8-22); CALCIUM 8.3 mg/dL (8.8-10.2); CHLORIDE 95 mmol/L (98-107); COSMO 269; CREATININE 0.6 mg/dL (0.7-1.2); ESTIMATED GFR > 60; GLUCOSE 119 mg/dL (70-104); POTASSIUM 4.8 mmol/L (3.5-5.1); SODIUM 132 mmol/L (136-145); TCO2 27 mmol/L (25-35)
[2018-10-13] MEDS: MIRALAX PO SCH ×2 (09:14→23:24)
[2018-10-13] MEDS: LACTULOSE PO SCH ×2 (09:15→23:24)
[2018-10-13] MEDS: ZYVOX PO SCH (09:15)
[2018-10-13] MEDS: ASPIRIN PO SCH (09:15)
[2018-10-13] MEDS: PROSCAR PO SCH (09:15)
[2018-10-13] MEDS: COLACE PO SCH ×2 (09:15→23:13)
[2018-10-13] MEDS: MYCOSTATIN SUSP PO SCH ×4 (09:15→23:13)
[2018-10-13] MEDS: LOVENOX SUBQ SCH (09:16)
--- NOTE | 2018-10-13 13:16 | INFECTIOUS DISEASE PROGRESS NO ---
DATE: 10/13/2018 PRESENT ILLNESS: The patient has left lower lung infiltrates. His procalcitonin is less than 0.1 which would make the left lower lobe very unlikely to be infected. I talked to Pathology, and they said that the pathology looks like some type of non-infectious inflammatory condition such as an organizing pneumonitis. The pathology has been sent to the [facility] for further review. All of the cultures from surgery are sterile. The pathologist said that special stains for AFB and fungi were negative. The patient's white count is elevated, but he is on steroids, and even being on steroids, his white count is coming down. For all of these reasons mentioned above, I doubt that the patient has an infection causing his infiltrate and leukocytosis. MEDICATION: This is the 9th day of treatment with a combination of Zyvox and cefepime. PHYSICAL EXAMINATION: Vital Signs: Temperature is 97.7 degrees, pulse 73, respirations 18, blood pressure is 130/61. General: This is a ill-appearing elderly male. He is in no acute distress. Head, Eyes, Ears, Nose, and Throat: He can hear my spoken words and see near objects. He does not have any white patches in his mouth. Neck: No meningismus. Lungs: There were some rales heard in the left lower lobe. The right lung was clear. Cardiovascular: Heart rate is regular. Abdomen: Soft and nontender. Thorax: Patient has a chest tube in place. Neurologic: The patient is alert. He can move his extremities. He was able to sit in a chair. DIAGNOSTIC STUDIES: The blood gases show a pH of 7.43, a PO2 of 74, and a pCO2 of 45. Creatinine is 0.6. The patient's CBC shows a white count that is down to 14,850, hemoglobin 11.7, and platelet count of 525,000. The patient's procalcitonin is less than 0.1. The patient's pleural fluid cultures are negative. ASSESSMENT AND PLAN: As mentioned above, I doubt the patient has a pulmonary infection. The pathology has been sent to the [facility] for further study. I am going to discontinue the patient's Zyvox and cefepime. I am also going to sign off his case, but I am available to see him on a p.r.n. basis. PATIENT'S COMORBIDITIES: Include: 1. The fact that the patient is elderly. 2. He has peripheral vascular disease. 3. Arthritis. cc: Shahram Li MD
--- NOTE | 2018-10-13 15:44 | HEMO/ONC PROGRESS NOTE ---
DATE: 10/13/2018 SUBJECTIVE: The patient is sitting upright in bed this morning, awake and eating his breakfast. The patient is in no acute distress, although he is quite uncomfortable due to the chest tube. He says he just can't find a comfortable position and is in hopes that it will be removed today. Family is at his bedside. Patient feels strong enough to go home. OBJECTIVE: Vital Signs: Temperature 97.7 degrees, pulse rate 73, respiratory rate 18, blood pressure 130/61, O2 saturation 99% on nasal cannula at 2 L, 5/10 pain. PHYSICAL EXAMINATION: General: Elderly gentleman in no acute distress. Respiratory: Lungs clear in all london. Cardiovascular: S1, S2 noted. Regular rate and rhythm. Abdomen: Soft, nondistended, nontender. Integumentary: Skin is warm and dry. Neurological: Alert and awake and oriented x3. No focal motor deficits. Extremities: No edema noted. LABORATORY: WBC 14.85, hemoglobin 11.7, hematocrit 35, platelets 525,000. Sodium 132, creatinine 0.6. ASSESSMENT: 1. Acute hypoxemic and hypercapnic respiratory failure. 2. Pneumonia. 3. Lung cancer versus mesothelioma. 4. COPD with exacerbation. 5. Continue deep vein thrombosis prophylaxis. PLAN: The patient is status post thoracoscopy with chest tube. Chesttube management per Dr. Rivera. We continue to follow and await pathology. Continue current management. He has improved in terms of his shortness of breath. We will follow up with him on outpatient when discharged home, hopefully after his chest tube is removed. Dictated by ELY Randhawa for Harry Yanez MD cc: Harry Yanez MD [facility]
--- NOTE | 2018-10-13 17:39 | PROGRESS NOTE ---
DATE: 10/13/2018 Mr. Cutler is feeling better. Chest tube is still in place. Hoping that maybe the chest tube can come out this evening. Remains afebrile. OBJECTIVE: Temperature 98 degrees, pulse 112, respirations 18, blood pressure 130/61. Pupils are equal and round. Lungs are clear in all lung london. Cardiovascular: Regular rhythm and rate without murmur or S3. Abdomen is soft. Skin is warm and dry. ASSESSMENT AND PLAN: 1. Acute hypoxemic hypercapnic respiratory failure. 2. Pneumonia. 3. Suspect possible lung cancer versus mesothelioma. Pathology apparently was nonspecific. Have not had official report yet. 4. Chronic obstructive pulmonary disease with exacerbation. 5. Continue deep venous thrombosis prophylaxis. 6. He is status post thoracoscopy with chest tube, but maybe tube will come out today. 7. Hopefully, close to getting discharged. REVIEW OF HIS ORDERS: I do not see any change. cc: Slavador Seymour MD
--- NOTE | 2018-10-13 20:40 | GENERAL SURGERY PROGRESS NOTE ---
DATE: 10/13/2018 SUBJECTIVE: Mr. Cutler is breathing comfortably. Still has an air leak noted. No chest x-ray today. Pathology is pending. PLAN: The plan will be to take the suction off the chest tube. We will repeat his chest x-ray in the morning. He is not draining very much fluid. cc: Ramirez Rivera MD
[2018-10-13] MEDS: XANAX PO PRN (23:08)
[2018-10-13] MEDS: MELATONIN PO SCH (23:12)
[2018-10-13] MEDS: REQUIP PO SCH (23:12)
[2018-10-13] MEDS: CRESTOR PO SCH (23:12)
[2018-10-13] MEDS: DESYREL PO SCH (23:13)
[2018-10-13] MEDS: DULCOLAX PR SCH (23:24)
[2018-10-14] MEDS: NORCO-7.5 PO PRN ×4 (04:45→21:11)
[2018-10-14] MEDS: DUONEB (A & A) INH SCH ×5 (05:08→18:41)
[2018-10-14] MEDS: PROTONIX PO SCH (06:35)
--- NOTE | 2018-10-14 06:58 | Diag Imaging Result Doc PS360 ---
EXAM: CHEST-PORTABLE 10/14/2018 HISTORY: post pleural biopsy TECHNIQUE: AP portable at 0627 COMMENT: There is a chest tube on the left. Compared to the previous study of 10/11/2018 the lungs are slightly better expanded and there is less atelectasis over the right base. There continues to be opacification of the mid and lower lung london on the left with probable atelectasis or pneumonia in the retrocardiac left lower lobe. There is no evidence of pneumothorax. IMPRESSION: Improved atelectasis. Electronically signed by Rudolph Thomson 10/14/2018 6:56 AM
[2018-10-14] MEDS: MYCOSTATIN SUSP PO SCH ×4 (08:27→21:14)
[2018-10-14] MEDS: COLACE PO SCH ×2 (08:27→21:16)
[2018-10-14] MEDS: SOLU-MEDROL IV SCH ×2 (08:27→21:16)
[2018-10-14] MEDS: LOVENOX SUBQ SCH (08:27)
[2018-10-14] MEDS: PROSCAR PO SCH (08:27)
[2018-10-14] MEDS: ASPIRIN PO SCH (08:28)
[2018-10-14] MEDS: PULMICORT INH SCH ×2 (08:41→18:43)
[2018-10-14] MEDS: MUCOMYST 20% INH SCH ×2 (08:41→18:44)
--- NOTE | 2018-10-14 14:02 | HEMO/ONC PROGRESS NOTE ---
DATE: 10/14/2018 SUBJECTIVE: Not much has changed in patient's status today. He is again sitting upright in bed. He has already eaten his breakfast. His family is at bedside. He feels quite well except that he is very uncomfortable due to the chest tube. He continues to state he just cannot find a comfortable position and it is very bothersome. He is hoping that Dr. Rivera will remove it today. He is ready to go home. OBJECTIVE: Vital Signs: Temperature 97.7 degrees, pulse rate 77, respiratory rate 16, blood pressure 133/66, O2 saturation 96% on 2 L via nasal cannula. He is in 5/10 pain. General: Elderly gentleman in no acute distress. Respiratory: Lungs are clear in all london. Chest tube noted to left chest wall. Cardiovascular: S1, S2 noted. Regular rate and rhythm. Abdomen: Soft, nondistended, nontender. Integumentary: Skin is warm and dry. Neurologic: Awake and alert, oriented x3. No focal motor deficits. Extremities: No edema noted. LABORATORY: No labs for today. RADIOLOGICAL: This morning's chest x-ray shows overall improved atelectasis. The lungs are slightly better expanded with less atelectasis over the right base. There continues to be opacification of the mid and lower lung london, with probable atelectasis or pneumonia in the retrocardiac left lower lobe. No pneumothorax. Chest tube on the left. ASSESSMENT: 1. Acute hypoxemic and hypercapnic respiratory failure. 2. Pneumonia. 3. Lung cancer versus mesothelioma. 4. Chronic obstructive pulmonary disease, with exacerbation. 5. Deep vein thrombosis prophylaxis. PLAN: We continue to await pathology. From our standpoint, the patient can be discharged home once the chest tube is removed. Please call us if we are needed for anything over the weekend. Dictated by ELY Randhawa for Harry Yanez MD cc: Harry Yanez MD
[2018-10-14] MEDS: LACTULOSE PO SCH ×2 (16:01→21:17)
[2018-10-14] MEDS: MIRALAX PO SCH ×2 (16:01→21:16)
[2018-10-14] MEDS ORDERED: NORCO-7.5 PO ONE (17:05)
--- NOTE | 2018-10-14 17:05 | PROGRESS NOTE ---
DATE: 10/14/2018 SUBJECTIVE: He is breathing comfortably. He feels good. Anxious to go home. Chest tube still in place in the left. OBJECTIVE: Temperature 98.1 degrees, pulse 99, respirations 17, blood pressure 135/65. Pupils are equal and round. Lungs are clear in all lung london. Cardiovascular: Regular rhythm and rate without murmur or S3. Abdomen is soft. Skin is warm and dry. Urine output: 2300 mL. ASSESSMENT AND PLAN: Acute hypoxemic hypercapnic respiratory failure. Pathology pending still. Concerned about possible lung cancer versus mesothelioma. Treating him for pneumonia. Chest tube I think close to coming out. This is chronic obstructive pulmonary disease with exacerbation. We will continue current orders. If he gets the chest tube out today, I think it is possible that he could go home in the morning. REVIEW OF HIS ORDERS: I do not see any change. LABORATORY DATA: Review of his lab from the 6th unremarkable. cc: Salvador Seymour MD
--- NOTE | 2018-10-14 17:09 | GENERAL SURGERY PROGRESS NOTE ---
DATE: 10/14/2018 I do not see an air leak today. His chest x-ray shows no pneumothorax. I will take his chest tube bowel later today. The biopsy remains pending. cc: Ramirez Rivera MD
[2018-10-14] MEDS: XANAX PO PRN (21:11)
[2018-10-14] MEDS: DESYREL PO SCH (21:16)
[2018-10-14] MEDS: CRESTOR PO SCH (21:16)
[2018-10-14] MEDS: MELATONIN PO SCH (21:16)
[2018-10-14] MEDS: DULCOLAX PR SCH (21:17)
[2018-10-14] MEDS: REQUIP PO SCH (22:19)
[2018-10-15] MEDS: DUONEB (A & A) INH SCH ×5 (00:05→15:52)
[2018-10-15] MEDS: NORCO-7.5 PO PRN ×2 (05:30→15:20)
[2018-10-15] MEDS: PROTONIX PO SCH (06:01)
[2018-10-15 08:02] VITALS: BP 138/62
[2018-10-15] MEDS: PULMICORT INH SCH (08:11)
[2018-10-15] MEDS: MUCOMYST 20% INH SCH (08:11)
[2018-10-15] MEDS: COLACE PO SCH (09:24)
[2018-10-15] MEDS: PROSCAR PO SCH (09:25)
[2018-10-15] MEDS: ASPIRIN PO SCH (09:25)
[2018-10-15] MEDS: LACTULOSE PO SCH (09:25)
[2018-10-15] MEDS: SOLU-MEDROL IV SCH (09:26)
[2018-10-15] MEDS: LOVENOX SUBQ SCH (09:26)
[2018-10-15] MEDS: MIRALAX PO SCH (09:31)
[2018-10-15] MEDS: MYCOSTATIN SUSP PO SCH (09:31)
[2018-10-15] MEDS ORDERED: MBX SOLUTION MT PRN (09:42)
--- NOTE | 2018-10-15 10:21 | HEMO/ONC PROGRESS NOTE ---
DATE: 10/15/2018 SUBJECTIVE: Mr. Cutler is awake, sitting up in bed. He has already eaten his breakfast. His family is at bedside. He states that he is much more comfortable since getting the chest tube out yesterday. He feels strong. He has no complaints. He is looking forward to going home soon. He showed me several mouth sores that have appeared today causing him some mild pain with certain foods. OBJECTIVE: Vital Signs: Temperature 98.6 degrees, pulse rate 63, respiratory rate 20, blood pressure 138/62, O2 saturation 94% on 2 L via nasal cannula, 0/10 pain. HEENT: Several sores noted to tongue. Respiratory: Lungs clear to auscultation. Cardiovascular: S1, S2 noted. Regular rate and rhythm. Gastrointestinal: Abdomen is soft, nontender, nondistended. Skin: Skin is warm, dry, and intact. Extremities: No edema noted. LABORATORY: No labs drawn today. ASSESSMENT: 1. Acute hypoxemic and hypercapnic respiratory failure. 2. Pneumonia. 3. Lung cancer versus mesothelioma, pathology still pending. 4. Chronic obstructive pulmonary disease, with exacerbation. 5. Deep venous thrombosis prophylaxis. PLAN: Ordered Magic mouthwash for his mouth pain. Added B12 and Folate levels to his labs as a possible cause. We continue to await pathology. From our standpoint we feel the patient is ready to be discharged home. We will follow up with him on an outpatient basis. Dictated by ELY Randhawa for Harry Yanez MD cc: Harry Yanez MD [facility]
--- NOTE | 2018-10-15 10:29 | PROGRESS NOTE ---
DATE: 10/15/2018 SUBJECTIVE: Mr. Cutler underwent thoracoscopy and left chest tube placement per Dr. Rivera. The chest tube has been removed and he has received IV antibiotics for pneumonia. The chest tube dressing site is moist and we will have the dressing changed. PLAN: Further care per our hospitalists. cc: Laisha Gutierrez MD
--- NOTE | 2018-10-15 11:45 | DISCHARGE SUMMARY ---
ADMISSION DATE: 09/30/2018 DISCHARGE DATE: 10/15/2018 PRIMARY CARE PHYSICIAN: Dr. Gadiel Osorio. HISTORY OF PRESENT ILLNESS: Mr. Stoll is a 77-year-old male with past medical history of CVA back in 2007 requiring left carotid endarterectomy, hypertension, hyperlipidemia, prostate cancer in the past with radiation seeds, history of depression, arthritis. Over the last couple weeks before admission on 09/30/2018, he complained of shortness of breath, coughing up green-yellowish phlegm. Denied any fever, but had a spell the morning of admission where he got extremely short of breath, felt like his blood pressure was low. His heart rate was running high. He was having chest pain and so presented to the emergency room. He had an elevated white blood cell count. His chest x-ray showed pneumonia bilaterally. Started on some antibiotics. Did not feel he was septic, but felt like he had bacteremia. Lactate level was normal and he was scheduled on Wednesday in a couple days to have a PET scan, followed by Dr. Yanez, to have a lung biopsy. Concerned about mesothelial versus lung cancer. PAST MEDICAL HISTORY: 1. CVA with memory loss. 2. Carotid artery stenosis, left CEA. 3. Hypertension. 4. Hyperlipidemia. 5. Restless leg syndrome. 6. Benign prostatic hypertrophy. 7. History of prostate cancer with radiation seeds. 8. Depression. 9. Osteoarthritis. PAST SURGICAL HISTORY: 1. Left carotid endarterectomy. 2. Appendectomy. 3. Prostate seed implants in the past. ADMISSION DIAGNOSES: 1. Acute hypoxemic respiratory failure, felt the possibility of lung cancer or mesothelioma and treated him for pneumonia. [place] he had chronic obstructive pulmonary disease exacerbation with hypoxemia. Put him on supplementary O2. 2. Concerned about mesothelioma versus lung cancer. Dr. Yanez and Dr. King have been working him up. 3. Pneumonia, so treated him with antibiotics, nebulizers, and supplemental O2. 4. Protein calorie malnutrition. 5. History of stroke with memory loss. 6. Hypertension. 7. Hyperlipidemia. 8. Benign prostatic hypertrophy and he has had prostate cancer which he had prostate seeds placed. 9. Restless leg syndrome. 10. Depression. HOSPITAL COURSE: Admitted to the hospital. Chest x-ray at that time showed no interval improvement. Lungs were hyperexpanded. There was dense infiltrate throughout the left lung with small pleural effusion. Heart was borderline mildly prominent. Mild pulmonary edema. Dr. King was asked to see the patient, he knows about. The patient had a PET scan the previous Wednesday, revealed mesothelioma versus lung cancer, and was followed by Dr. Yanez, so continued his antibiotics. Dr. Yanez evaluated and he felt that this represented a left lung pneumonia or pulmonary edema or a combination, rapidly changed from the last exam at [facility] on 09/22/2018, so the plan was to continue to treat him aggressively for pneumonia. PET scan revealed pleural thickening and significant uptake in the pleural area, maximum SUV of 15.9, particularly concerning for malignancy. The patient continued to be on Venturi mask and surgical consult was requested regarding thoracoscopy and biopsy of the left lung pleural space, and left thoracoscopy was done with biopsy of the pleural on 09/30/2018, had a chest tube in. Antibiotics were continued and eventually able to pull out the chest tube on 10/14/2018 and felt he was ready go home on 10/15/2018. Still the bandage in his left flank, left back. DISCHARGE MEDICATIONS: He is taking Xanax 0.25 mg q.8 hours p.r.n.. He takes Artificial Tears eye drops as needed. Aspirin 81 mg a day. He is on Pulmicort inhaler b.i.d., Colace 100 mg b.i.d., Proscar 5 mg daily. I will give him some [place], he takes 1 q.4 hours p.r.n., and lactulose 30 mL b.i.d., melatonin 6 mg at bedtime. He was on Solu-Medrol which I think we can stop, he was on 40 mg IV q.12. Protonix 40 mg daily, Chloraseptic spray as needed, Requip 0.5 mg at bedtime, Crestor 10 mg at bedtime, trazodone 100 mg at bedtime. FOLLOWUP: He is to follow up with Oncology and with Dr. King as well as Surgery. cc: MD ELISHA Brown
--- NOTE | 2018-10-15 13:41 | DISCHARGE SUMMARY ---
ADMISSION DATE: 09/30/2018 DISCHARGE DATE: ADDENDUM: Mr. Hilario mouth is still sore. We will give him some Magic mouthwash, gave him a prescription for that. He also requests a prescription for Xanax. Also, he does not have oxygen at home, and so we need to establish whether he needs it and get that ready for him to go home if he needs it, so we are going to have Respiratory come up and check and see if we can establish him for home oxygen. I will try and get [facility] to come out and see him. cc: Salvador Seymour MD
== END 2018-10-15 17:48 | disposition home health service (06) | DRG 166 ==
LOC: ED 07:11 → SUATTDRO 15:50 → EDIPHOLD 15:50 → 3N 16:48
PROVIDERS: ATTEND Emergency Medicine
CPT/HCPCS: 71010; 71020; 71045; 71046; 71275; 74022; 80048; 80053; 80185; 81001; 82378; 82550; 82607; 82746; 82784; 82805; 83605; 83880; 83930; 83935; 84145; 84155; 84165; 84300; 84484; 85025; 85610; 85730; 86334; 87040; 87070; 87205; 87449; 87899; 88305; 88312; 88313; 89220; 93005; 93306; 94640; 94660; 94760; 94761; 96365; 96375; 97110; 97163; 97530; 99285; A9270; C1725; C8929; J0692; J0696; J1100; J1170; J1650; J1940; J1956; J2405; J2920; J2930; J3010; J7030; J7120; Q9957; Q9967; S0138